=== PATIENT | male | born 1960 | race Caucasian/White ===

== ENCOUNTER 2021-07-05 06:53 | Outpatient (CLI) | payer OTHER, SELFPAY ==
[2021-07-05 07:31] LABS: Hemoglobin 9.2 g/dL (14.0-18.0); Mean Corpuscular HGB Conc 31.7 g/dl (32-36); Mean Corpuscular Hemoglobin 30.3 pg (26-34); Mean Corpuscular Volume 95.4 fl (80-100); Mean Platelet Volume 8.2 fl (7.4-10.4); Platelet Count Result 540 k/mm3 (150-375); Red Blood Count 3.04 M/mm3 (4.6-6.20); Red Cell Distribution Width 13.8 % (11.5-14.5); White Blood Count 12.1 K/mm3 (4.5-10.0)
[2021-07-05 07:38] LABS: Anion Gap 8 mmol/L (8-16); Blood Urea Nitrogen 15 mg/dL (9-20); Calcium 8.7 mg/dL (8.4-10.2); Carbon Dioxide 30 mmol/L (22-30); Chloride 100 mmol/L (98-107); Estimated Glomerular Filt Rate > 60; Glucose 117 mg/dL (65-110); Potassium 4.3 mmol/L (3.4-5.0); Sodium 138 mmol/L (137-145)
== END 2021-07-05 06:54 | disposition home or self-care (01) ==
PROVIDERS: PCP Physician Assistant
DX: D64.9 Anemia, unspecified (principal); E87.6 Hypokalemia
CPT/HCPCS: 36415; 80048; 85027

== ENCOUNTER 2021-10-07 07:15 | Outpatient (RCR) | payer OTHER, SELFPAY ==
[2021-07-23 08:23] VITALS: PULSE 89
== END 2021-10-07 08:30 | disposition home or self-care (01) ==
LOC: ANHCPREHAB 07:15
PROVIDERS: PCP Physician Assistant
DX: Z95.2 Presence of prosthetic heart valve (principal); Z95.5 Presence of coronary angioplasty implant and graft
CPT/HCPCS: 93798

== ENCOUNTER 2021-10-11 00:41 | Day surgery (SDC) | payer OTHER, SELFPAY ==
[2021-09-27 14:09] VITALS: BMI 25.0
--- NOTE | 2021-10-08 13:53 | PM.HPGS ---
History of Present Illness History of Present Illness Consent: Risks, benefits, and alternatives have been discussed and questions answered. Patient agrees to proceed with procedure. Chief complaint: hx of colon polyps Narrative: Brian Suarez is a 61 year old male referred for colon cncer screening. He has a history of colon polyps. His last colonoscopy was 5 years ago Review of Systems Review of Systems: All systems reviewed & are unremarkable except as noted in HPI and below PMFSH Family History Family History Father Diabetes mellitus Hypercholesteremia Heart disease Grandparent Carcinoma of colon Social History Social History Smoking status: Never smoker Substance use type: does not use Living arrangements: alone Spiritual care concerns: No Meds Home Medications and Allergies Home Medications Medication Instructions Recorded Confirmed Type aspirin 325 mg PO DAILY 07/23/21 09/27/21 History atorvastatin 40 mg PO DAILY 07/23/21 09/27/21 History Allergies Allergy/AdvReac Type Severity Reaction Status Date / Time No Known Allergies Allergy Verified 10/11/21 08:48 Exam Resp: Auscultation: clear to auscultation bilaterally Cardio: Rate: regular rate Rhythm: regular rhythm GI: GI Palp: Yes Soft to palpation and No Tenderness to palpation present (GI) Assessment and Plan Assessment and plan (1) Colon cancer screening: Code(s): Z12.11 - Encounter for screening for malignant neoplasm of colon Status: Acute Assessment and Plan: Colonoscopy with possible biopsy or polypectomy or cautery or injection of substances.
[2021-10-11 08:50] VITALS: BP 132/96; PULSE 88; RESP 18; TEMP 36.4; O2SAT 99
[2021-10-11] MEDS: LACTATED RINGERS 1,000 ML 150 ML IV CONT (09:06)
[2021-10-11] MEDS: GENTAMICIN 80MG/SOD CHL 50 ML 80 MG/50 ML BAG 100 MG IVPB (09:07)
--- NOTE | 2021-10-11 09:13 | WPDANESEPPF ---
Anes - Initial Pre Proc Eval Procedure: Operation Date: 10/11/21 10:00 Proposed Procedures p Screening Colonoscopy - Aj Chris MD Date/Time: 10/11/21 09:13 Surgeon: Aj Chris MD Pre Op Diagnosis: hx of colon polyps Patient Data Age: 61 Gender: M Height: 1.75 m Weight: 77 kg Last Vital Signs Temp 97.6 F 10/11/21 08:50 Pulse 88 10/11/21 08:50 Resp 18 10/11/21 08:50 BP 132/96 H 10/11/21 08:50 Pulse Ox 99 10/11/21 08:50 Allergies Allergy/AdvReac Type Severity Reaction Status Date / Time No Known Allergies Allergy Verified 10/11/21 08:48 Home Medications Medication Instructions Recorded Confirmed Type aspirin 325 mg PO DAILY 07/23/21 09/27/21 History atorvastatin 40 mg PO DAILY 07/23/21 09/27/21 History Patient hx anesthesia problems: none Family hx anesthesia problems: none Results Review: All pre-operative results and documents have been reviewed as part of the pre-operative evaluation. [facility] Family History Family History (Updated 07/23/21 @ 08:45 by America Hernandez RN) Father Diabetes mellitus Hypercholesteremia Heart disease Grandparent Carcinoma of colon Social History Social History Smoking status: Never smoker Substance use type: does not use Living arrangements: alone Spiritual care concerns: No Anes - Eval Final PreProcedure Day of Procedure 10/11/21 09:13 Patient weight: normal Heart: regular rate and rhythm Lungs: clear to auscultation Airway: Mallampati scale class II Neurological: alert and oriented Last oral intake: >/= 8 hours ASA classification: III Emergent: no Anesthetic plan: proceed Anesthesia type and monitoring: general GIVS and standard monitoring Results Review: All pre-operative results and documents have been reviewed as part of the pre-operative evaluation. Informed Consent: The patient's anesthetic plan and its attendant risks and benefits were discussed with the patient/family/POA. Questions were solicited and answers provided to the satisfaction of the patient/family/POA.
[2021-10-11] MEDS: AMPICILLIN 2 GM/NS 100 ML 2 GM/100 ML BAG IVPB (09:33)
[2021-10-11 10:10] VITALS: BP 95/64; PULSE 92; RESP 20; O2SAT 100
[2021-10-11 10:20] VITALS: BP 121/89; PULSE 91; RESP 20; O2SAT 100
[2021-10-11 10:30] VITALS: BP 106/80; PULSE 87; RESP 20; O2SAT 100
== END 2021-10-11 10:39 | disposition home or self-care (01) ==
PROVIDERS: PCP Physician Assistant; Visit Provider Internal Medicine Gastroenterology
PROC: 0DJD8ZZ Inspection of Lower Intestinal Tract, Via Natural or Artificial Opening Endoscopic (ICD-10-PCS; CPT 45378; principal; 2021-10-11 10:00)
DX: Z12.11 Encounter for screening for malignant neoplasm of colon (principal); Z86.010 Personal history of colon polyps; K64.8 Other hemorrhoids; Z79.82 Long term (current) use of aspirin
CPT/HCPCS: 45378; J0290; J1580; J2704; J7120

== ENCOUNTER → 2022-09-30 14:20 | Outpatient (CLI) | payer OTHER, SELFPAY ==
--- NOTE | ~2022-09-30 | MR_ITS ---
EXAMINATION: MR brain/brain stem wo/w con DATE: 09/30/2022 15:06 INDICATION: Headache. TECHNIQUE: Magnetic resonance imaging (MRI) of the brain and brainstem was performed without and with 15 mL MultiHance intravenous contrast. COMPARISON: None. FINDINGS: There are a few foci of nonspecific increased T2-weighted signal intensity in the cerebral white matter, which is within normal limits for the patient's age. There is no intracranial hemorrhag e, acute infarction, or abnormal intracranial mass lesion. The ventricles are normal in size. The par anasal sinuses are clear. The orbits are normal. The mastoid air cells are normal. IMPRESSION: 1. Normal brain. Reviewed, dictated and finalized at location A. Y EDUCATION TEACHER IMPRESSION: 1. Normal brain.
== END ==
PROVIDERS: PCP Physician Assistant; Visit Provider Physician Assistant
DX: R51.9 Headache, unspecified (principal)
CPT/HCPCS: 70553; A9577

== ENCOUNTER → 2023-01-20 09:22 | Outpatient (CLI) | payer OTHER, SELFPAY ==
--- NOTE | ~2023-01-20 | CT_ITS ---
CT of the Abdomen: Indication: Distended abdominal wall veins Technique: 2.5 mm axial scans were obtained through the abdomen following intravenous administration of 100 cc of Omnipaque 350. Dose reduction technique was used on this scan by utilizing automated ex posure control and iterative reconstruction technique. The dose-length product (DLP) was 309.86 mGy-c m. Findings: Scans through the lung bases are unremarkable. There is eventration/elevation of the left hemidiaphragm. The liver, spleen, pancreas, gallbladder, and adrenal glands are within normal limits. There is sever e right hydronephrosis and dilatation renal pelvis with abrupt tapering at the UPJ region. Small simp le left renal cyst present. No evidence of aortic aneurysm. No lymphadenopathy. Visualized bowel loops are unremarkable. Probable trace free fluid in the visualized upper pelvis. Sc attered left-sided abdominal surgical clips are noted. Mildly prominent vessels are noted in the ante rior subcutaneous soft tissues, nonspecific. Impression: Mildly prominent vessels in the anterior subcutaneous soft tissues, nonspecific. Severe right hydronephrosis with abrupt tapering at the UPJ region, suggestive of UPJ obstruction. Th is appears to be new as compared to prior chest CT dated 04/13/2018 however. Consider additional imagi ng workup as indicated. Probable trace free fluid in the upper pelvis. Reviewed, dictated and finalized at location M. Impression: Mildly prominent vessels in the anterior subcutaneous soft tissues, nonspecific . Severe right hydronephrosis with abrupt tapering at the UPJ region, suggestive of UPJ obstruction. This appears to be new as compared to prior chest CT dated 04/13/2018 however. Consider additional imaging workup as indicated. Probable trace free fluid in the upper pelvis.
[2023-01-20 09:41] LABS: Estimated Glomerular Filt Rate 56
== END ==
PROVIDERS: PCP Physician Assistant; Visit Provider Physician Assistant
DX: I86.8 Varicose veins of other specified sites (principal); N13.30 Unspecified hydronephrosis
CPT/HCPCS: 74160; Q9967

== ENCOUNTER 2024-09-24 15:34 | Outpatient (CLI) | payer MEDICARE, OTHER, SELFPAY ==
--- NOTE | ~2024-09-24 | XR_ITS ---
Exam: Abdomen 1V HISTORY: R10.9 - Unspecified abdominal pain COMPARISON: Reference is made to a CT examination of the abdomen dated 01/20/2023. TECHNIQUE: Supine images of the abdomen FINDINGS: Significant fecal stasis within the colon. Multiple surgical clips, to the left of midline consistent with prior surgical intervention. No air is identified within the rectum. IMPRESSION: Significant fecal stasis without air in the rectum, as detailed above. Cross-sectional imaging (contrast-enhanced CT examination of the abdomen and pelvis) is recommended f or further evaluation. Reviewed, dictated and finalized at location A. GHT AND PASSENGER AGENT IMPRESSION: Significant fecal stasis without air in the rectum, as detailed above. Cross-sectional imaging (contrast-enhanced CT examination of the abdomen and pe lvis) is recommended for further evaluation.
== END 2024-09-24 15:35 | disposition home or self-care (01) ==
LOC: MICIMG 15:35
PROVIDERS: PCP Family Medicine; Visit Provider Family Medicine
DX: K56.41 Fecal impaction (principal); Z87.19 Personal history of other diseases of the digestive system
CPT/HCPCS: 74019

== ENCOUNTER 2024-11-26 16:13 | Outpatient (CLI) | payer MEDICARE, OTHER, SELFPAY ==
--- NOTE | ~2024-11-26 | CT_ITS ---
CT of the Abdomen and Pelvis: Indication: Fecal impaction Technique: 2.5 mm axial scans were obtained through the abdomen and pelvis following intravenous adm inistration of 100 cc of Omnipaque 350. Dose reduction technique was used on this scan by utilizing a utomated exposure control and iterative reconstruction technique. The dose-length product (DLP) was 3 34.01 mGy-cm. COMPARISON: 01/20/2023 Findings: Scans through the lung bases demonstrate minimal left basilar atelectatic change. Extensiv e collateral vessels are noted in the subcutaneous soft tissues predominantly the left anterior abdom inal and chest wall region. There is elevation of the left hemidiaphragm. The liver, spleen, pancreas, gallbladder, and adrenal g lands are within normal limits. Status post right nephrectomy. Left renal cyst present. No evidence o f aortic aneurysm. No lymphadenopathy. No bowel obstruction or bowel wall thickening. Prominent stool suggests constipation. Images through the pelvis were performed. Urinary bladder unremarkable. Prostate gland mildly enlarge d. No ascites. Impression: No definite acute abnormality. Status post right nephrectomy. Stable elevation left hemidiaphragm. Enlarged prostate gland. Constipation. Reviewed, dictated and finalized at location M. Impression: No definite acute abnormality. Status post right nephrectomy. Stable elevation left hemidiaphragm. Enlarged prostate gland. Constipation.
--- OUTSIDE RECORDS SUMMARY | 2024-11-26 17:02 | XMS_ITS | Encounter Summary ---
Author Organization [facility] Address [facility] [place] [address] Care Team Providers Care Basketball Commentator Name Role Phone Sania Sullivan Primary Care Provider [phone] Encounter Details Date Type Department Care Team (Late st Contact Info) Description 05/07/[address] [facility] Conversion [address], [place] [address] , Generic Conversion, Social History Tobacco Use Types Packs/Day Years Used Date Smoking Tobacco: Never Sex and Gender Information Value Date Recorded Sex Assigned at Male 02/13/2023 9:49 AM CDT Legal Sex Male 9:51 PM CDT Gender Identity Male 02/13/2023 9:49 AM CDT Sexual Orientation Straight 02/13/2023 9: 49 AM CDT documented as of this encounter Plan of Treatment Not on file documented as of this encounter Visit Diagnoses Not on filedocumented in this encounter Additional Health Concerns Infection Onset Date Last Indicated Resolved Time COVID-19 Rule Out 06/20/2021 06/20/2021 09/09/2021 11:08 AM IT ANALYST COVID-19 Rule Out 06/21/2021 06/20/2021 06/21/2021 11:58 AM CDT documented as of this encounter Care Teams Basketball Commentator Relationship Specialty Start Date End Date Sania Sullivan PA [address] [place] [address] PCP - General PHYSICIAN LEARNING SUPPORT SPECIALIST 01/27/23 documented as of this encounter
--- OUTSIDE RECORDS SUMMARY | 2024-11-26 17:02 | XMS_ITS | Clinical Summary ---
Author Organization [facility] Address [facility] [place] [address] Care Team Providers Care Automotive Service Management Teacher Name Role Phone Sania Sullivan Primary Care Provider [phone] Allergies No known active allergies Medications atorvastatin (LIPITOR) 40 MG tablet Take 1 tablet (40 mg total) by mouth nightly at bedtime. Active levothyroxine (SYNTHROID) 75 MCG tablet Take 1 tablet (75 mcg total) by mouth every morning. Active aspirin EC (ECOTRIN) 81 MG tablet Take 1 tablet (81 mg total) by mouth daily. Active Vitamin D3 125 mcg Tab Take 1 tablet (125 mcg total) by mouth every other day. Active vitamin B-12 (CYANOCOBALAMIN ) (CYANOCOBALAMIN ) 1000 mcg tablet Take 1 tablet (1,000 mcg total) by mouth every other day. 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 Family History Medical History Relation Comments Diabetes Father Kidney Disease Father None Maternal Grandmother kidney sujey bean Cancer Paternal Grandfather colon None Paternal Grandfather kidney sujey bean Relation Status Comments Father Maternal Grandmother Mother Alive Paternal Grandfather Social History Tobacco Use Types Packs/Day Years Used Date Smoking Tobacco: Never Smokeless Tobacco: Never Tobacco Cessation:Counseling Given: Not Answered Alcohol Use Standard Drinks/Week Comments Not Currently 0 (1 standard drink = 0.6 oz pur e alcohol) Sex and Gender Information Value Date Recorded Sex Assigned at Male 02/13/2023 9:49 AM CDT Legal Sex Male 9:51 PM CDT Gender Identity Male 02/13/2023 9:49 AM CDT Sexual Orientation Straight 02/13/2023 9: 49 AM CDT Last Filed Vital Signs Vital Sign Reading Time Taken Comments Blood Pressure 138/73 02/14/2023 12:30 PM CDT Pulse 61 02/14/2023 12:30 PM CDT Temperature 36.3 C (97.4 F) 02/14/2023 7:00 AM CDT Respiratory Rate 16 02/14/2023 12:3 0 PM CDT Oxygen Saturation 99% 02/14/2023 12: 30 PM CDT Inhaled Oxygen Concentration - - Weight 75.2 kg (165 lb 12.6 oz) 02/14/2023 7:00 AM CDT Height 175.3 cm (5' 9 ) 02/14/2023 7:00 AM CDT Body Mass Index 24.48 02/14/2023 7:00 AM CDT Plan of Treatment Health Maintenance Due Date Last Done Comments Colorectal Cancer Screening Colonoscopy (10 Years) 1959 Hepatitis C 1977 Zoster Vaccines (1 of 2) 2009 COVID-19 Vaccine (3 - 2023-2 5 season) 2024 01/23/2021, 01/02/2021 Pneumococcal Vaccine: 65+ Years (1 of 1 - PCV) 2024 DTaP, Tdap and Td Vaccines ( 2 - Td or Tdap) 10/17/2032 10/17/2022 RSV Immunization or 60+ Years (1 - 1-dose 75+ series) 2034 Meningococcal B Vaccine Aged Out No l onger eligible based on patient's age to complete this topic Meningococcal Vaccine Aged Out No rita angelito eligible based on patient's age to complete this topic Pneumococcal Vaccine: Pediatrics (0 to 5 Years) and At-Risk Patients (6 to 64 Years) Aged Out No longer eligible b ased on patient's age to complete this topic RSV Immunizations Under 20 Months Aged Out No longer eligible b ased on patient's age to complete this topic Medical Devices Implanted Type Area Transportation Assistant Device Identifier Shelf Expiration Date Model / Serial / Lot Valve Implant Valve Implant Aorta Insurance [employer] OPEN ACCESS [facility] Care Teams Automotive Service Management Teacher Relationship Specialty Start Date End Date Sania Sullivan PA [address] [place] [address] PCP - General PHYSICIAN COUNTER CONTROL OPERATOR 01/27/23
--- OUTSIDE RECORDS SUMMARY | 2024-11-26 17:02 | XMS_ITS | Encounter Summary ---
Author Organization [facility] Address [facility] [place] [address] Care Team Providers Care Green Chain Offbearer Name Role Phone Sania Sullivan Primary Care Provider [phone] Encounter Details Date Type Department Care Team (Late st Contact Info) Description 10/24/[address] [facility] Conversion [address] [place], [place] [id number] , Generic Conversion, Social History Tobacco Use [...] Rule Out 06/20/2021 06/20/2021 09/09/2021 11:08 AM LARD MAKER COVID-19 Rule Out 06/21/2021 06/20/2021 06/21/2021 11:58 AM CDT documented as of this encounter Care Teams Green Chain Offbearer Relationship Specialty Start Date End Date Sania Sullivan PA [address] [place] [address] PCP - General PHYSICIAN RECEIVING DOCK CHECKER 01/27/23 documented as of this encounter
--- OUTSIDE RECORDS SUMMARY | 2024-11-26 17:02 | XMS_ITS | Clinical Summary ---
Author Organization [facility] Address [address] [place] [address] Care Team Providers Care Records Management Coordinator Name Role Phone Sania Sullivan Primary Care Pr ovider Enid Barnes DO Unavailable [phone] Bib Hanna MD Unavailable [phone] Allergies No known active allergies Medications atorvastatin (LIPITOR) 40 mg tabletIndicatio ns:hyperlipidem ia Take 1 tablet (40 mg total) by mouth daily with dinner Active levothyroxine (SYNTHROID) 75 mcg tabletIndicatio ns:hypothyroidi sm Take 1 tablet (75 mcg total) by mouth cork tile floor layer before breakfast Active cyanocobalamin (Vitamin B-12) 1,000 mcg tabletIndicatio ns:Prevention of Vitamin B12 Deficiency Take 1 tablet (1,000 mcg total) by mouth daily Active cholecalciferol (Vitamin D3) 5,000 unit tabletIndicatio ns:Prevention of Vitamin D Deficiency Take 1 tablet (5,000 Units total) by mouth every other day Active aspirin 81 mg enteric coated tabletIndicatio ns:prevention of thrombosis Take 1 tablet (81 mg total) by mouth daily Resume in 3 days 3 Active Active Problems Problem Noted Date Diagnosed Date Atrophic kidney 05/17/2023 Atrophic kidney, acquired 04/14/2023 Surgical History Surgery Date Site/Laterality Comments CATH SVC IVC BILATERAL 04/02/2015 Bilateral CATH SVC IVC BILATERAL 07/21/2015 Bilateral CATH SVC IVC BILATERAL 04/08/2015 Bilateral Medical History Medical History Date Comments Hyperlipidemia Hodgkin lymphoma (HCC) 1974 Social History Tobacco Use Types Packs/Day Years Used Date Smoking Tobacco: Never Passive Smoke Exposure: Never Smokeless Tobacco: Never Tobacco Cessation:Counseling Given: Not Answered AUDIT-C Answer Date Recorded Q1: How often do you have a drink containing alcohol? Never 05/05/2023 Q2: How many drinks containi ng alcohol do you have on a typical day when you are drinking? Patient does not drink Q3: How often do you have si x or more drinks on one occasion? Never 05/05/2023 Personal Safety Answer Date Recorded Have you ever been in or are you currently in a harmful physical or emotional relationship or is someone making you feel afraid or unsafe? Denies 05/04/2024 Sex and Gender Information Value Date Recorded Sex Assigned at Not on file Legal Sex Male 5:57 AM CIGAR BINDER Gender Identity Not on file Sexual Orientation Not on file Obstetrics History Last Filed Vital Signs Vital Sign Reading Time Taken Comments Blood Pressure 144/94 05/04/2024 6:00 PM CDT Pulse 83 05/04/2024 6:00 PM CDT Temperature 36.7 C (98 F) 05/04/2024 11:28 AM CDT Respiratory Rate 16 05/04/2024 11:28 AM CDT Oxygen Saturation 98% 05/04/2024 6:00 PM CDT Inhaled Oxygen Concentration - - Weight 78 kg (172 lb) 05/04/2024 11:28 AM CDT Height 175.3 cm (5' 9 ) 05/04/2024 11:28 AM CDT Body Mass Index 25.4 05/04/2024 11:28 AM CDT Plan of Treatment Health Maintenance Due Date Last Done Comments Colon Cancer Screening-Colonoscopy 1959 Depression Screening 1959 Hepatitis C Screening 1959 Prostate Cancer Screening-PSA 1959 Pneumococcal vaccine 65+ (1 of 2 - PCV) 1978 Zoster Vaccine (1 of 2) 1978 Covid-19 Vaccine (3 - Pfizer risk series) 02/20/2021 01/23/2021, 01/02/2021 Fall Risk Assessment 05/17/2024 05/17/2023 Abdominal Aortic Aneurysm (A AA) Screen 2024 05/04/2024 Well Visit 65+ 2024 Influenza Vaccine (Season Ended) 2025 06/16/20 14, 05/21/2013 DTaP/Tdap/Td Vaccine (2 - Td or Tdap) 10/17/2032 Hepatitis B Screening Completed 02/28/2011 , 08/16/2010, 07/12/2010 Procedures Procedure Name Priority Date/Time Associated Diagnosis Comments CT ABDOMEN PELVIS WO CONTRAST ED 05/04/2024 4:48 PM CDT from Last 3 Months or Most Recently Relevant to Health Maintenance Results * CT Abdomen Pelvis WO Contrast (05/04/2024 4:48 PM CDT) Anatomical Region Laterality Modality Body N/A Computed Tomogra phy 05/04/2024 5:52 PM CDT Impressions 05/04/2024 5:[address] evidence of acute intra-abdominal or intra-pelvic disease. 2. Marked elevation of the left hemidiaphragm which results in incomplete imaging of the abdominal organs. 3. 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 4. Right nephrectomy. 5. Moderate chronic stool burden. Electronically signed by: Zi Chavez 05/04/2024 5:52 PM CDT EXAMINATION: CT ABDOMEN PELVIS WO CONTRAST INDICATION: Flank pain, kidney stone suspected COMPARISON: None TECHNIQUE: Volumetric multidetector CT images of the abdomen and pelvis were obtained without the administration of IV contrast. Multiple planes were reconstructed for examination. FINDINGS: Exam is limited by lack of IV contrast. Elevation of the left hemidiaphragm which is incompletely imaged with incomplete imaging of the stomach, pancreatic tail, and colonic splenic flexure. Round uniform attenuation tissue in the left upper quadrant measuring 4.3 cm likely represents splenule. There is no parent spleen within the image field of view. There are surgical clips in the left or quadrant likely related to prior splenectomy. Multiple additional surgical clips in the left mid and inferior abdomen and in the left pelvis. The liver is normal in size. No intrahepatic biliary ductal dilatation. Gallbladder and common bile duct are unremarkable. Right nephrectomy. Small right Bochdalek hernia. The pancreas and adrenal glands are unremarkable. No evidence of urolithiasis. No evidence of hydronephrosis, hydroureter or perinephric fat stranding. Simple interpolar left renal cyst. Urinary bladder is decompressed, limiting evaluation. Prostatomegaly. Seminal vesicles are unremarkable. Moderate colonic stool burden. Otherwise, stomach, large, and small bowel are unremarkable. The appendix is noninflamed. No abdominal or pelvic lymphadenopathy. No free air or free fluid is seen within the peritoneal cavity. The nonaneurysmal aorta and its branches are without significant abnormality. No acute osseous abnormalities or destructive osseous lesion. Moderate L5-S1 degenerative disc disease. Mild L1 to facet arthropathy on the left. Mild T10-T11 degenerative disc disease. Procedure Note Emre Garett Vee, DO - 05/04/2024 EXAMINATION: CT ABDOMEN PELVIS WO CONTRAST INDICATION: Flank pain, kidney stone suspected COMPARISON: None TECHNIQUE: Volumetric multidetector CT images of the abdomen and pelvis were obtained without the administration of IV contrast. Multiple planes were reconstructed for examination. FINDINGS: Exam is limited by lack of IV contrast. Elevation of the left hemidiaphragm which is incompletely imaged with incomplete imaging of the stomach, pancreatic tail, and colonic splenic flexure. Round uniform attenuation tissue in the left upper quadrant measuring 4.3 cm likely represents splenule. There is no parent spleen within the image field of view. There are surgical clips in the left or quadrant likely related to prior splenectomy. Multiple additional surgical clips in the left mid and inferior abdomen and in the left pelvis. The liver is normal in size. No intrahepatic biliary ductal dilatation. Gallbladder and common bile duct are unremarkable. Right nephrectomy. Small right Bochdalek hernia. The pancreas and adrenal glands are unremarkable. No evidence of urolithiasis. No evidence of hydronephrosis, hydroureter or perinephric fat stranding. Simple interpolar left renal cyst. Urinary bladder is decompressed, limiting evaluation. Prostatomegaly. Seminal vesicles are unremarkable. Moderate colonic stool burden. Otherwise, stomach, large, and small bowel are unremarkable. The appendix is noninflamed. No abdominal or pelvic lymphadenopathy. No free air or free fluid is seen within the peritoneal cavity. The nonaneurysmal aorta and its branches are without significant abnormality. No acute osseous abnormalities or destructive osseous lesion. Moderate L5-S1 degenerative disc disease. Mild L1 to facet arthropathy on the left. Mild T10-T11 degenerative disc disease. IMPRESSION: 1. No CT evidence of acute intra-abdominal or intra-pelvic disease. 2. Marked elevation of the left hemidiaphragm which results in incomplete imaging of the abdominal organs. 3. 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 4. Right nephrectomy. 5. Moderate chronic stool burden. Electronically signed by: Garett Andrea D.O. Nancy Verduzco MD IMG CT PROCEDURES Final Result from Last 3 Months or Most Recently Relevant to Health Maintenance Insurance [place] [id number] MEDICARE [place] [id number] Advance Directives For more information, please contact: [phone] Documents on File Type Date Recorded Patient Lock Maintenance Supervisor Expl anation Power of Sandblast Operator 05/17/2023 11:19 AM * Full Code (Latest Code Status on File) Date Activated Date Inactivated Comments 05/17/2023 6:46 PM 05/18/2023 10:05 PM Care Teams Records Management Coordinator Relationship Specialty Start Date End Date Sania Sullivan PA PCP - General 04/13/17 Enid Barnes DO [address] [place] [id number] Referring Physician Internal Medicine 05/12/23 [place] [address] [place] [address] Consulting Physician Urology 05/18/23
--- OUTSIDE RECORDS SUMMARY | 2024-11-26 17:02 | XMS_ITS | Continuity of Care Document ---
Author Organization [facility] Address [address] [place] [address] Phone Care Team Providers Care Charge Accounts Audit Clerk Name Role Phone Melchor Ewing MD Unavailable Unavailable Allergies, Adverse Reactions, Alerts Substance Reaction Status Criticality No Known Allergies Active No Inform ation Medications Medication Instructions Dosage Effective Dates (start - stop) Status Comments ATORVASTATIN 40MG TABLETS TAKE 1 TABLET BY MOUTH EVERY DAY AT BEDTIME - Active LEVOTHYROXINE 0.075MG (75MCG) TABS TAKE 1 TABLET BY MOUTH EVERY DAY - Active aspirin 81 mg chewable tablet chew 1 tablet by oral route every day 81 MG - Active Vitamin B-12 ER 1,000 mcg tablet,extended release - Active Vitamin D3 125 mcg (5,000 unit) tablet take 1 tablet by oral route every other day - Active levothyroxine 75 mcg tablet take 1 tablet by oral route every day 75 MCG - No Longer Active atorvastatin 40 mg tablet take 1 tablet by oral route every day at bedtime 40 MG - No Longer Active Procedures Procedure Date GENERAL HEALTH PANEL HEMOGLOBIN A1C HGA1C, GLYCO LIPID PANEL PSA, TOTAL ROUTINE VENIPUNCTURE PREVENTATIVE-EST: 40-64 OFFICE [id number] OFFICE [id number] OFFICE [id number] Advance Directives Directive Yes / No Effective Date File Name No Information Encounters Encounter Description Practice Location Reason(s) For Visit Diagnoses Date Provider Providers Copied on Encounter [facility], [address], [place], [place], [id number] , [place] tel: [phone] [facility] No Information 5 Kaylin Roche. [address], [address], [place], [id number], [place]. tel:[phone] [facility], [address], [place], [place], [id number] , [place] tel: [phone] [facility] Chronic neck painOther chronic pain [address], [address], [place], [id number], [place]. tel:[phone] PREVENTATIVE -EST: 40-64 [facility], [address], [place], [place], [id number] , [place] tel: [phone] [facility] preventive exam (chief complaint)Ch ronic Conditions (chief complaint) Mixed hyperlipidemiaAcqu ired hypothyroidismCAD, multiple vesselPreventative health careChronic neck pain [address], [address], [place], [id number], [place]. tel:[phone] Referring Provider: Melchor Marquez, [address], [place], [address] . tel:[phone] OFFICE [id number] PANDED [facility], [address], [place], [place], [id number] , [place] tel: [phone] [facility] acute problem (chief complaint)ac [place] problem (chief complaint) Viral URI with cough 4 Cynthia Grajeda. [address], [address], [place], [id number]. tel:[phone] Referring Provider: Melchor Marquez, [address], [place], [address] . tel:[phone] OFFICE [id number]-TBF-DA MP-MED [facility], [address], [place], [place], [id number] , [place] tel: [phone] Reinaldo Kidd getting established (chief complaint) Acquired hypothyroidismCAD, multiple vesselEssential tremorChronic coughPedal edemaMixed hyperlipidemia Kaylin Roche. [address], [address], [place], [id number], [place]. tel:[phone] Referring Provider: Celia [address], [place], [address] . tel:[phone] Family History Family Member Type Diagnosis Age At Onset No Information Payers Payer name Insurance type Covered green party ID Eros drake(s) [employer] [place] OPEN ACCESS I II III CI [id number] SOI Social History Type Description Quantity Date Captured Comments Sex Male Smoking Status No Information Sexual Orientation Straight or heterosexual Gender Identity Male Chief Complaint And Reason For Visit No Information Reason For Referral Reason For Referral No Information Plan Of Treatment Date Type Action Status Referral Referred To: Physical Therapy Ordered: Referrals: Physical Therapy. Evaluation/diagnostic/treatment - Level 3 ordered Referral Referred To: Physical Therapy [address] [place], [id number] Ordered: Referrals: Physical Therapy. Location: [facility]. Evaluation/diagnostic/treatment - Level 3 ordered Appointment Brian Suarez BOOKED History Of Present Illness Encounter Date Complaint History Of Prese nt Illness preventive exam Men's preventive visit. Patient is on a plant based diet diet. Marital status: . Relevant history is negative for tobacco use, alcohol use. Chronic Conditions *See Chronic Conditions HPI acute problem Chief complaint: Pt presents with URI. Pt reports 2 weeks ago developed nasal drainage, dry cough. The next day developed headache, body aches, productive cough. This lasted about 5 days, then symptoms improved. Six days ago he worked outside and symptoms recurred. Has recurrent productive cough of clear phlegm. Positive clear nasal drainage. Cough worse at night, wakes him up. Denies shortness of breath, wheezing, sore throat, ear pain, fevers, chills. Positive decreased energy. Not taking any OTC medications. Had negative COVID test today. acute problem getting established new patient comes in to get established. 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 No prior work up. Did not smoke. 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 He does not take an ZACKARY inhibitor. He does not have hypertension. Denies asthma though there is a family history. Cough gets worse at night. Denies acid reflux symptoms.Has a tremor in both hands worse on the left, blames it on his atorvastatin. Stopped it for five weeks on the recommendations of his schedule analyst basalt no real improvement. No family history of tremor.As coronary disease status post bypass an aortic valve replacement for which he sees Dr. Jeffrey. He brings in blood work from February we chose LDL to be around, he is resistant to taking 80 mg of atorvastatin is recommended 40 mg. He is very clean plant-based diet. He does not smoke as noted above. He does exercise. He does have a history of hypothyroidism and takes thyroid medicine with his most recent TSH in February being therapeutic. He does need refills of his medications.Just complain of lower extremity swelling that predates vein stripping for his bypass surgery. Proves with sleep and wears compression stockings. Won urinates frequently and does not want to have any diuretics added. He recently had a nephrectomy because of a malfunctioning kidney. 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 Referral for PT given to patient. If PT doesn't improve pain, let our office know and we will consider getting an xray of your neck. Related to Chronic neck pain Sees cardiology. jag chan aspirin and statin therapy Related to CAD, multiple vessel continue atorvastatin Related to Mixed hyperlipidemia Continue levothyroxi neLabs to check thyroid function today Related to Acquired hypothyroidism Start Medrol dosepak as described on the packageStart Mucinex DM over the counter as directed (6 or 12 hour packages)Humidifiers, steamy showersCall office or go to ED with worsening shortness of breath, cough, wheezing, or fever >101F Related to Viral URI with cough refilled atorvastati n, reviewed lipid panel March 12 LDL is 82 Related to Mixed hyperlipidemia we discussed the mul tiple causes of cough include postnasal drip acid reflux asthma or possibly radiation-induced damage. The various treatments would entail trying different medications. He's not interested for now. Related to Chronic cough continue support stockings Relat ed to Pedal edema review thyroid from February, repeat next February at physical. Refill thyroid dose Related to Acquired hypothyroidism continue aspirin and statin ther apy Related to CAD, multiple vessel discuss treatment op tions, observation for now. Reaffirmed happily the stent was causing this Related to Essential tremor Assessments Type Assessment Date No Information Patient Care Teams Name Effective Dates (start - stop) Status Members No Information
--- OUTSIDE RECORDS SUMMARY | 2024-11-26 17:02 | XMS_ITS | Encounter Summary ---
Author Organization [facility] Address [facility] [place] [address] Care Team Providers Care Concrete Stone Finisher Name Role Phone Sania Sullivan Primary Care Provider [phone] Encounter Details Date Type Department Care Team (Late st Contact Info) Description 01/30/2023 Prep for Procedure [facility] Pre-Admission Testing [place], [place] [address] Abelardo Rodriguez MD [address] [facility] [address] [place], [place] [address] Social History Tobacco Use Types Packs/Day Years Used Date Smoking Tobacco: Never Smokeless Tobacco: Never Alcohol Use Standard Drinks/Week Comments Not Currently 0 (1 standard drink = 0.6 oz pur e alcohol) Sex and Gender Information Value Date Recorded Sex Assigned at Male 02/13/2023 9:49 AM CDT Legal Sex Male 9:51 PM CDT Gender Identity Male 02/13/2023 9:49 AM CDT Sexual Orientation Straight 02/13/2023 9: 49 AM CDT COVID-19 Exposure Response Date Recorded In the last 10 days, have yo u been in contact with someone who was confirmed or suspected to have Coronavirus/COVID-19? No / Unsure 01/31/2023 9:31 AM CDT documented as of this encounter Plan of Treatment Not on file documented as of this encounter Results * PTT, PARTIAL THROMBOPLASTIN TIME (01/27/2023 1:55 PM CDT) PTT 35.3 25.1 - 36.5 SEC 01/27/2023 2:32 PM CDT [facility] 01/27/2023 1:55 PM CDT Abelardo Rodriguez MD LABORATORY Final Res ult Performing Organization Address [facility] Co de Phone Number [facility] [address] [place] [address], [place] [phone] * (ABNORMAL) PROTIME/INR, VENOUS (01/27/2023 1:55 PM CDT) PROTIME 13.4(H) 10.2 - 12.9 SEC 01/27/2023 2:32 PM CDT [facility] INR 1.1 01/27/2023 2:32 PM CDT [facility] Comment: Recommended INR Therapeutic Goals: 2.0-3.0 Routine Therapy 2.5-3.5 Mechanical Prosthetic Valves (High Risk) 01/27/2023 1:55 PM CDT Abelardo Rodriguez MD LABORATORY Final Res ult Performing Organization Address [facility] Co de Phone Number [facility] [address] [place] [address], * (ABNORMAL) BASIC METABOLIC PANEL (01/27/2023 1:55 PM CDT) GLUCOSE 103(H) 70 - 99 MG/DL 01/27/2023 2:28 PM CDT [facility] BUN 21(H) 7 - 18 MG/DL 01/27/2023 2:28 PM CDT [facility] CREATININE S/P/B 1.44(H) 0.7 - 1.3 MG/DL 01/27/2023 2:28 PM CDT [facility] SODIUM S/P/B 135(L) 136 - 145 MMOL/L 01/27/2023 2:28 PM CDT [facility] POTASSIUM S/P/B 3.9 3.5 - 5.1 MMOL/L 01/27/2023 2:28 PM CDT [facility] CHLORIDE S/P/B 106 100 - 108 MMOL/L 01/27/2023 2:28 PM CDT [facility] CO2 30.3 21 - 32 MMOL/L 01/27/2023 2:28 PM CDT [facility] CALCIUM S/P/B 8.6 8.5 - 10.1 MG/DL 01/27/2023 2:28 PM CDT [facility] ANION GAP NOT CALCULATED 5 - 15 MMOL/L 01/27/2023 2:28 PM CDT [facility] BUN CREATININE RATIO 14.6 6 - 26 01/27/2023 2:28 PM CDT [facility] GFR ESTIMATE 55(L) >90 ML/MIN/1. 73 M2 01/27/2023 2:28 PM CDT [facility] Comment: NOTE: eGFR is not calculated for patients <18 years of age. This is an estimated GFR calculation using the new CKD EPI creatinine equation without race and so does not require a correction factor for race. This estimated GFR should not be used for calculating drug doses. 01/27/2023 1:55 PM CDT us Abelardo Rodriguez MD LABORATORY Final Res ult [facility] [address] [place] [address], [place] [phone] * (ABNORMAL) CBC W/DIFF AUTOMATED (01/27/2023 1:55 PM CDT) [facility] WBC 6.5 4.5 - 11.0 x10'3/uL 01/27/2023 2:09 PM CDT [facility] RBC 4.06(L) 4.70 - 6.10 x10'6/uL 01/27/2023 2:09 PM CDT [facility] HGB 12.1(L) 14.0 - 18.0 G/DL 01/27/2023 2:09 PM CDT [facility] HCT 38.1(L) 43.0 - 54.0 % 01/27/2023 2:09 PM CDT [facility] MCV 93.8 80.0 - 94.0 FL 01/27/2023 2:09 PM CDT [facility] MCH 29.8 27.0 - 31.0 PG 01/27/2023 2:09 PM CDT [facility] MCHC 31.8(L) 32.0 - 36.0 G/DL 01/27/2023 2:09 PM CDT [facility] RDW 13.8 11.5 - 14.5 % 01/27/2023 2:09 PM CDT [facility] PLT 207 130 - 400 x10'3/uL 01/27/2023 2:09 PM CDT [facility] MPV 10.2 9.3 - 12.2 FL 01/27/2023 2:09 PM CDT [facility] DIFFERENTIAL TYPE AUTOMATED DIFFERENTIAL 01/27/2023 2:09 PM CDT [facility] NEUTROPHILS % 62.6 % 01/27/2023 2:09 PM CDT [facility] LYMPHOCYTES % 18.0 % 01/27/2023 2:09 PM CDT [facility] MONOCYTES % 14.9 % 01/27/2023 2:09 PM CDT [facility] EOSINOPHILS 3.4 % 01/27/2023 2:09 PM CDT [facility] BASOPHILS 0.9 % 01/27/2023 2:09 PM CDT [facility] IMMATURE GRANS % 0.2 % 01/28/20 2:09 PM CDT [facility] ABS. NEUTROPHILS TOTAL 4.04 1.80 - 7.70 x10'3/uL 01/27/2023 2:09 PM CDT [facility] ABS. LYMPHOCYTES 1.16 1.00 - 4.80 x10'3/uL 01/27/2023 2:09 PM CDT [facility] ABS. MONOCYTES 0.96(H) 0.30 - 0.82 x10'3/uL 01/27/2023 2:09 PM CDT [facility] ABS. EOSINOPHILS 0.22 0.04 - 0.54 x10'3/uL 01/27/2023 2:09 PM CDT [facility] ABS. BASOPHILS 0.06 0.01 - 0.08 x10'3/uL 01/27/2023 2:09 PM CDT [facility] ABS. IMMATURE GRANULOCYTES 0.01 0.00 - 0.49 x10'3/uL 01/27/2023 2:09 PM CDT [facility] 01/27/2023 1:55 PM CDT us Abelardo Rodriguez MD LABORATORY Final Res ult [facility] [address] [place] [address], * CULTURE URINE (01/27/2023 1:47 PM CDT) SPEC DESCRIPTION URINE CLEAN CATCH 01/27/2023 1:47 PM CDT [facility] SPECIAL REQUESTS NO SPECIAL REQUEST 01/27/2023 1:47 PM CDT [facility] CULTURE RESULT NO GROWTH 2 DAYS 01/29/2023 10:23 AM CDT [facility] URINE SPECIMEN OBTAINED BY CLEAN CATCH PROCEDURE / Unknown 01/27/2023 1:47 PM CDT 01/27/2023 1:59 PM CDT Abelardo Rodriguez MD MICROBIOLOGY - GENERAL OR DERABLES Final Result [facility] [address] [place] [address], [place] [phone] * URINALYSIS WI REFLEX TO CULTURE (01/27/2023 1:47 PM CDT) SPECIMEN TYPE URINE CLEAN CATCH 01/27/2023 1:47 PM CDT [facility] COLOR (U) COLORLESS 01/27/2023 2:10 PM CDT [facility] TRANSPARENCY CLEAR 01/27/2023 2:10 PM CDT [facility] SPECIFIC GRAVITY (U) 1.030 1.001 - 1.030 01/27/2023 2:10 PM CDT [facility] U PH 6.5 5.0 - 9.0 01/27/2023 2:10 PM CDT [facility] LEUKOCYTES (U) NEGATIVE NEGATIVE 01/27/2023 2:10 PM CDT [facility] NITRITES NEGATIVE NEGATIVE 01/27/2023 2:10 PM CDT [facility] PROTEIN (U) NEGATIVE <30 MG/DL 01/27/2023 2:10 PM CDT [facility] URINE GLUCOSE NORMAL NORMAL MG/DL 01/27/2023 2:10 PM CDT [facility] KETONES MG/DL (U) NEGATIVE NEGATIVE MG/DL 01/27/2023 2:10 PM CDT [facility] UROBILINOGEN NORMAL NORMAL MG/DL 01/27/2023 2:10 PM CDT [facility] BILIRUBIN (U) NEGATIVE NEGATIVE MG/DL 01/27/2023 2:10 PM CDT [facility] BLOOD (U) NEGATIVE NEGATIVE 01/27/2023 2:10 PM CDT [facility] CULTURE & SENSITIVITY INDICATED? CULTURE IS NOT INDICATED 01/27/2023 2:10 PM CDT [facility] WBC/HPF <1 <6 /HPF 01/27/2023 2:10 PM CDT [facility] URINE SPECIMEN OBTAINED BY CLEAN CATCH PROCEDURE / Unknown 01/27/2023 1:47 PM CDT Abelardo Rodriguez MD URINE ORDERABLES Final Re sult [facility] [address] [place] [address], documented in this encounter Visit Diagnoses Diagnosis Hypertrophy of prostate with urinary obstruction- Primary Hypertrophy of prostate with urinary obstruction and other lower urinary tract symptoms (LUTS) documented in this encounter Care Teams Concrete Stone Finisher Relationship Specialty Start Date End Date Sania Sullivan PA [address] [place] [address] PCP - General PHYSICIAN NETWORK OPERATIONS TECHNICIAN 01/27/23 documented as of this encounter
--- OUTSIDE RECORDS SUMMARY | 2024-11-26 17:03 | XMS_ITS | Referral Summary ---
Author Organization [facility] Address [address] [place] [address] Care Team Providers Care Liner Machine Operator Helper Name Role Phone Sania Sullivan Primary Care Pr ovider Enid Barnes DO Unavailable [phone] Bib Hanna MD Unavailable [phone] Allergies No known active allergies Medications atorvastatin (LIPITOR) 40 mg tabletIndicatio ns:hyperlipidem ia Take 1 tablet (40 mg total) by mouth daily with dinner Active levothyroxine (SYNTHROID) 75 mcg tabletIndicatio ns:hypothyroidi sm Take 1 tablet (75 mcg total) by mouth assistant drafter before breakfast Active cyanocobalamin (Vitamin B-12) 1,000 [...] Atrophic kidney 05/17/2023 Atrophic kidney, acquired 04/14/2023 Social History Tobacco Use Types Packs/Day Years [...] on file 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 Electronically signed by: Garett Andrea D.O. Narrative 05/04/2024 5:52 PM CDT EXAMINATION: CT ABDOMEN [...] Mild T10-T11 degenerative disc disease. Procedure Note Garett Andrea, DO - 05/04/2024 EXAMINATION: CT ABDOMEN PELVIS [...] by: Garett Andrea D.O. Nancy Verduzco MD 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
== END 2024-11-26 16:14 | disposition home or self-care (01) ==
PROVIDERS: PCP Family Medicine; Visit Provider Nurse Practitioner Family
DX: K56.41 Fecal impaction (principal); N40.0 Benign prostatic hyperplasia without lower urinary tract symptoms; J98.6 Disorders of diaphragm; Z90.5 Acquired absence of kidney
CPT/HCPCS: 74177; Q9967

== ENCOUNTER 2025-04-22 13:31 | Emergency (ER) | payer MEDICARE, SELFPAY ==
--- OUTSIDE RECORDS SUMMARY | 2025-01-31 07:05 | XMS_ITS | Continuity of Care Document ---
Author Organization [facility] Address [address] [place] [address] Phone Care Team Providers Care Assembler Unit Name Role Phone Melchor Ewing MD Unavailable [...] oral route every other day - Active Procedures Procedure Date GENERAL HEALTH PANEL HEMOGLOBIN A1C HGA1C, GLYCO LIPID PANEL PSA, TOTAL ROUTINE VENIPUNCTURE PREVENTATIVE-EST: 40-64 OFFICE [id number] OFFICE [id number]-IVT-VMENDOHW OFFICE [id number]-PFZ-USND-MED Advance Directives Directive Yes / No Effective Date File Name Life Support Not Answered N/A N/A Intubation Not Answered N/A N/A Antibiotics Not Answered N/A N/A IV Fluid Support Not Answered N/A N/A Tube Feed Not Answered N/A N/A Other Directive N/A N/A WARNING:The information contained in this section is historical and is provided for information only and does not constitute a legal document or any assurance that the information is still accurate. Please verify the information with the cota of the legal document before using it for clinical purposes. Encounters Encounter Description Practice Location Reason(s) For Visit Diagnoses Date Provider Providers Copied on Encounter [facility], [address], [place], [place], [address] , tel: [phone] [facility] No Information [address], [address], [place], [place], [address], [place]. tel:[phone] [facility], [address], [place], [place], [address] , [place] tel: [phone] [facility] No Information 5 Kaylin Roche. [address], [place], [place], [address], [place]. tel:[phone] [facility], [address], [place], [place], [address] , [place] tel: [phone] [facility] Chronic neck painOther chronic pain [address], [address], [place], [place], [address], [place]. tel:[phone] PREVENTATIVE -EST: 40-64 [facility], [address], [place], [place], [address] , [place] tel: [phone] [facility] preventive exam (chief complaint)Ch ronic Conditions (chief complaint) Mixed hyperlipidemiaAcqu ired hypothyroidismCAD, multiple vesselPreventative health careChronic neck pain 4 Kaylin Roche. [address], [place], [address], [place]. tel:[phone] Referring Provider: Melchor Marquez, [address]ia [address], [place], [address] . tel:[phone] OFFICE [id number]-YWJ-WJ PANDED [facility], [address], [place], [place], [address] , [place] tel:[phone] Reinaldo Kidd acute problem (chief complaint)ac noah problem (chief complaint) Viral URI with cough 4 Cynthia Grajeda. [address], [address], [place], [place], [address]. tel:[phone] Referring Provider: Melchor Marquez, [address]ia [address], [place], [address] . tel:[phone] OFFICE VIYKC-DYH-YZ MP-MED [facility], [address], [place], [place], [address] , [place] tel:[phone] Reinaldo Kidd getting established (chief complaint) Acquired hypothyroidismCAD, multiple vesselEssential tremorChronic coughPedal edemaMixed hyperlipidemia [address], [place], [place], [address], [place]. tel:[phone] Referring Provider: Melchor Marquez, Celia [address], [place], [address] . tel:[phone] Family History Family Member Type Diagnosis Age At Onset No Information Payers Payer name Insurance type Covered green party ID Authoriza vidal(s) [facility] OPEN ACCESS I II III CI [id number] SOI Social History Type Description Quantity Date Captured Comments Alcohol Use Details Unknown Caffeine Use Details Unknown Tobacco Use Status No Information Smoking Status No Information Sex Male Sexual Orientation Straight or heterosexual Gender Identity Male Chief Complaint And Reason For Visit No Information Reason For Referral Reason For Referral No Information Plan Of Treatment Date Type Action Status Referral Referred To: Physical Therapy Ordered: Referrals: Physical Therapy. Evaluation/diagnostic/treatment - Level 3 ordered Referral Referred To: Physical Therapy [address] [place], [phone] Ordered: Referrals: Physical Therapy. Location: [facility] [place]. 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 As a number of complaints including call [...] five weeks on the recommendations of his cq developer basalt no real improvement. No family history [...] No Information Instructions Date Instruction Additional Infor katarzyna try to maintain a he althy weight.Exercise [...] to Viral URI with cough refilled atorvastati alhaji, reviewed lipid panel March 12 LDL is [...]
--- OUTSIDE RECORDS SUMMARY | 2025-01-31 07:05 | XMS_ITS | Continuity of Care Document ---
Author Organization [facility] Address [address] [place] [address] Phone Care Team Providers Care Client Delivery Specialist Name Role Phone Melchor Ewing MD Unavailable [...] PSA, TOTAL ROUTINE VENIPUNCTURE PREVENTATIVE-EST: 40-64 OFFICE [id number]-[id number] OFFICE [id number]-YHEWKYNV OFFICE BEHIV-ASB-PNJF-MED Advance Directives Directive Yes / No Effective [...] Diagnoses Date Provider Providers Copied on Encounter [facility], [address], [place], [place], [address] , tel: [phone] [facility] No Information [address] Kay[address], [address], [place], [place], [address], [place]. tel:[phone] [facility], [address], [place], [place], [address] , [place] tel: [phone] [facility] No Information 5 Kaylin Roche. [address], [place], [place], [address], [place]. tel:[phone] [facility], [address], [place], [place], [address] , [place] tel: [phone] [facility] Chronic neck painOther chronic pain [address], [address], [place], [place], [address], [place]. tel:[phone] PREVENTATIVE -EST: 40-64 [facility], [address], [place], [place], [address] , [place] tel: [phone] [facility] preventive exam (chief complaint)Ch ronic Conditions (chief complaint) Mixed hyperlipidemiaAcqu ired hypothyroidismCAD, multiple vesselPreventative health careChronic neck pain 4 Kaylin Roche. [address], [place], [address], [place]. tel:[phone] Referring Provider: Melchor Marquez, Celia [address], [place], [address] . tel:[phone] OFFICE LSKUT-INT-DG PANDED [facility], [address], [place], [place], [address] , [place] tel:[phone] Reinaldo Kidd acute problem (chief complaint)ac noah problem (chief complaint) Viral URI with cough 4 Cynthia Grajeda. [address], [address], [place], [place], [address]. tel:[phone] Referring Provider: Melchor Marquez, Celia [address], [place], [address] . tel:[phone] OFFICE YVZGD-UKE-RE MP-MED [facility], [address], [place], [place], [address] , [place] tel:[phone] Reinaldo Kidd getting established (chief complaint) Acquired hypothyroidismCAD, multiple vesselEssential tremorChronic coughPedal edemaMixed hyperlipidemia [address], [place], [place], [address], [place]. tel:[phone] Referring Provider: Melchor Marquez, Celia [address], [place], [address] . tel:[phone] Family History Family Member Type Diagnosis Age At Onset No Information Payers Payer name Insurance type Covered libertarian ID Authoriza vidal(s) CLEAR OPEN ACCESS I II III CI [id number] SOI Social History Type Description Quantity Date [...] [address] [place], [phone] Ordered: Referrals: Physical Therapy. Location: [facility] [place]. 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 As a number of complaints including call [...] five weeks on the recommendations of his freelance copywriter basalt no real improvement. No family history [...]
--- NOTE | ~2025-04-22 | XR_ITS ---
EXAM/ PROCEDURE: XR forearm RT 2V, XR hand RT min 3V - 04/22/2025 15:30 CDT HISTORY: 64 years old Male with arm swelling/bruising, pinned in door COMPARISON: None available TECHNIQUE: Three view(s) FINDINGS/ IMPRESSION: There are no fractures or dislocations.Joint spaces are within normal limits. Reviewed, dictated and finalized at location N.
[2025-04-22 13:36] VITALS: BP 133/75; PULSE 78; RESP 16; TEMP 36.9; O2SAT 99
--- OUTSIDE RECORDS SUMMARY | 2025-04-22 13:42 | XMS_ITS | Encounter Summary ---
Author Organization [facility] Address [facility] [place] [address] Care Team Providers Care Growth Hacker Name Role Phone Sania Sullivan Primary Care Provider [phone] Hugh Hamm MD Primary Care Provider [phone] Encounter Details Date Type Department Care Team (Late st Contact Info) Description 01/30/[address] [facility] [place] [address] Abelardo Rodriguez MD [address] [facility] [address] [place], [place] [address] Social History Tobacco Use Types Packs/Day Years [...] AM CDT documented as of this encounter Functional Status * Calculated C-SSRS Risk Score (Lifetime/Recent) Answer Date of Assessment Author Status No Risk Indicated 01/31/2023 11:01 AM CDT Evangelina Chacon RN Active * Arabi Suicide Severity Rating Scale (Screener/Recent Self-Report) Question Answer Date of Assessment Author Status 1. Wish to be (Past 1 Month) No 01/31/2023 11:01 AM JET Felipa Chacon RN Active 2. Non-Specific Active Suicidal Thoughts (Past 1 Month) No 01/31/2023 11:01 AM JET Felipa Chacon RN Active 6. Suicidal Behavior (Lifetime) No 01/31/2023 11:01 AM JET Felipa Chacon RN Active documented as of this encounter Plan of Treatment Not on file documented as of this encounter Results * PTT, PARTIAL THROMBOPLASTIN TIME (01/27/2023 1:55 PM CDT) PTT 35.3 25.1 - 36.5 SEC 01/27/2023 2:32 PM CDT [facility] 01/27/2023 1:55 PM CDT Abelardo Rodriguez MD LABORATORY Final Res ult [facility] [address] [place] [address], [place] [phone] * (ABNORMAL) PROTIME/INR, VENOUS (01/27/2023 1:55 PM CDT) PROTIME 13.4(H) 10.2 - 12.9 SEC 01/27/2023 2:32 PM CDT [facility] INR 1.1 01/27/2023 2:32 PM CDT [facility] Comment: Recommended INR Therapeutic Goals: 2.0-3.0 Routine Therapy 2.5-3.5 Mechanical Prosthetic Valves (High Risk) 01/27/2023 1:55 PM CDT us Abelardo Rodriguez MD LABORATORY Final Res ult [facility] [address] [place] [address], * (ABNORMAL) BASIC METABOLIC PANEL (01/27/2023 1:55 PM CDT) [facility] GLUCOSE 103(H) 70 - 99 MG/DL 01/27/2023 2:28 PM CDT [facility] BUN 21(H) 7 - 18 MG/DL 01/27/2023 2:28 PM CDT [facility] CREATININE S/P/B 1.44(H) 0.7 - 1.3 MG/DL 01/27/2023 2:28 PM CDT [facility] SODIUM S/P/B 135(L) 136 - 145 MMOL/L 01/27/2023 2:28 PM CDT [facility] POTASSIUM S/P/B 3.9 3.5 - 5.1 MMOL/L 01/27/2023 2:28 PM CDT [facility] CHLORIDE S/P/B 106 100 - 108 MMOL/L 01/27/2023 2:28 PM CDT [facility] CO2 30.3 21 - 32 MMOL/L 01/27/2023 2:28 PM CDT [facility] CALCIUM S/P/B 8.6 8.5 - 10.1 MG/DL 01/27/2023 2:28 PM CDT [facility] ANION GAP NOT CALCULATED 5 - 15 MMOL/L 01/27/2023 2:28 PM CDT [facility] BUN CREATININE RATIO 14.6 6 - 26 01/27/2023 2:28 PM CDT [facility] GFR ESTIMATE 55(L) >90 ML/MIN/1. 73 M2 01/27/2023 2:28 PM CDT [facility] Comment: NOTE: eGFR is not calculated for patients <18 years of age. This is an estimated GFR calculation using the new CKD EPI creatinine equation without race and so does not require a correction factor for race. This estimated GFR should not be used for calculating drug doses. 01/27/2023 1:55 PM CDT Abelardo Rodriguez MD LABORATORY Final Res ult [facility] [address] [place] [address], * (ABNORMAL) CBC W/DIFF AUTOMATED (01/27/2023 1:55 PM CDT) WBC 6.5 4.5 - 11.0 x10'3/uL 01/27/2023 2:09 PM CDT [facility] RBC 4.06(L) 4.70 - 6.10 x10'6/uL 01/27/2023 2:09 PM CDT [facility] HGB 12.1(L) 14.0 - 18.0 G/DL 01/27/2023 2:09 PM CDT [facility] HCT 38.1(L) 43.0 - 54.0 % 01/27/2023 2:09 PM CDT [facility] MCV 93.8 80.0 - 94.0 FL 01/27/2023 2:09 PM CDT [facility] MCH 29.8 27.0 - 31.0 PG 01/27/2023 2:09 PM CDT [facility] MCHC 31.8(L) 32.0 - 36.0 G/DL 01/27/2023 2:09 PM CDT [facility] RDW 13.8 11.5 - 14.5 % 01/27/2023 2:09 PM CDT [facility] PLT 207 130 - 400 x10'3/uL 01/27/2023 2:09 PM CDT [facility] MPV 10.2 9.3 - 12.2 FL 01/27/2023 2:09 PM CDT [facility] DIFFERENTIAL TYPE AUTOMATED DIFFERENTIAL 01/27/2023 2:09 PM CDT [facility] NEUTROPHILS % 62.6 % 01/27/2023 2:09 PM CDT [facility] LYMPHOCYTES % 18.0 % 01/27/2023 2:09 PM CDT [facility] MONOCYTES % 14.9 % 01/27/2023 2:09 PM CDT [facility] EOSINOPHILS 3.4 % 01/27/2023 2:09 PM CDT [facility] BASOPHILS 0.9 % 01/27/2023 2:09 PM CDT [facility] IMMATURE GRANS % 0.2 % 01/28/20 2:09 PM CDT [facility] ABS. NEUTROPHILS TOTAL 4.04 1.80 - 7.70 x10'3/uL 01/27/2023 2:09 PM CDT [facility] ABS. LYMPHOCYTES 1.16 1.00 - 4.80 x10'3/uL 01/27/2023 2:09 PM CDT [facility] ABS. MONOCYTES 0.96(H) 0.30 - 0.82 x10'3/uL 01/27/2023 2:09 PM CDT [facility] ABS. EOSINOPHILS 0.22 0.04 - 0.54 x10'3/uL 01/27/2023 2:09 PM CDT [facility] ABS. BASOPHILS 0.06 0.01 - 0.08 x10'3/uL 01/27/2023 2:09 PM CDT [facility] ABS. IMMATURE GRANULOCYTES 0.01 0.00 - 0.49 x10'3/uL 01/27/2023 2:09 PM CDT [facility] 01/27/2023 1:55 PM CDT Abelardo Rodriguez MD LABORATORY Final Res ult [facility] [address] [place] [address], [place] [phone] * CULTURE URINE (01/27/2023 1:47 PM CDT) SPEC DESCRIPTION URINE CLEAN CATCH 01/27/2023 1:47 PM CDT [facility] SPECIAL REQUESTS NO SPECIAL REQUEST 01/27/2023 1:47 PM CDT [facility] CULTURE RESULT NO GROWTH 2 DAYS 01/29/2023 10:23 AM CDT [facility] URINE SPECIMEN OBTAINED BY CLEAN CATCH PROCEDURE / Unknown 01/27/2023 1:47 PM CDT 01/27/2023 1:59 PM CDT Abelardo Rodriguez MD MICROBIOLOGY - GENERAL OR DERABLES Final Result [facility] [address] [place] [address], [place] [phone] * URINALYSIS [place] REFLEX TO CULTURE (01/27/2023 1:47 PM CDT) SPECIMEN TYPE URINE CLEAN CATCH 01/27/2023 1:47 PM CDT [facility] COLOR (U) COLORLESS 01/27/2023 2:10 PM CDT [facility] TRANSPARENCY CLEAR 01/27/2023 2:10 PM CDT [facility] SPECIFIC GRAVITY (U) 1.030 1.001 - 1.030 01/27/2023 2:10 PM CDT [facility] U PH 6.5 5.0 - 9.0 01/27/2023 2:10 PM CDT [facility] LEUKOCYTES (U) NEGATIVE NEGATIVE 01/27/2023 2:10 PM CDT [facility] NITRITES NEGATIVE NEGATIVE 01/27/2023 2:10 PM CDT [facility] PROTEIN (U) NEGATIVE <30 MG/DL 01/27/2023 2:10 PM CDT [facility] URINE GLUCOSE NORMAL NORMAL MG/DL 01/27/2023 2:10 PM CDT [facility] KETONES MG/DL (U) NEGATIVE NEGATIVE MG/DL 01/27/2023 2:10 PM CDT [facility] UROBILINOGEN NORMAL NORMAL MG/DL 01/27/2023 2:10 PM CDT [facility] BILIRUBIN (U) NEGATIVE NEGATIVE MG/DL 01/27/2023 2:10 PM CDT [facility] BLOOD (U) NEGATIVE NEGATIVE 01/27/2023 2:10 PM CDT [facility] CULTURE & SENSITIVITY INDICATED? CULTURE IS NOT INDICATED 01/27/2023 2:10 PM CDT [facility] WBC/HPF <1 <6 /HPF 01/27/2023 2:10 PM CDT [facility] URINE SPECIMEN OBTAINED BY CLEAN CATCH PROCEDURE / Unknown 01/27/2023 1:47 PM CDT Abelardo Rodriguez MD URINE ORDERABLES Final Re sult [facility] [address] [place] [address], documented in this encounter Visit Diagnoses Diagnosis Hypertrophy of prostate with urinary obstruction- Primary Hypertrophy of prostate with urinary obstruction and other lower urinary tract symptoms (LUTS) documented in this encounter Care Teams Growth Hacker Relationship Specialty Start Date End Date Sania Sullivan PA PCP - General PHYSICIAN SURFBOARD MAKER 01/27/23 11/28/24 Hugh Hamm MD [address] [place] [address] PCP - General FAMILY PRACTICE 11/29/24 documented as of this encounter
--- OUTSIDE RECORDS SUMMARY | 2025-04-22 13:42 | XMS_ITS | Encounter Summary ---
Author Organization [facility] Address [facility] [place] [address] Care Team Providers Care Aircraft Technician Name Role Phone Sania Sullivan Primary Care Provider [phone] Hugh Hamm MD Primary Care Provider [phone] Encounter Details Date Type Department Care Team (Late st Contact Info) Description 05/07/[address] [facility] Conversion [address] [place], [place] [address] , Generic Conversion, Social History Tobacco Use [...] Rule Out 06/20/2021 06/20/2021 09/09/2021 11:08 AM MESSENGER COPY COVID-19 Rule Out 06/21/2021 06/20/2021 06/21/2021 11:58 AM CDT documented as of this encounter Care Teams Aircraft Technician Relationship Specialty Start Date End Date Sania Sullivan PA PCP - General PHYSICIAN EQUIPMENT INSTALLATION PROFESSIONAL 01/27/23 11/28/24 Hugh Hamm MD [address] [place] [address] PCP - General FAMILY PRACTICE 11/29/24 documented as of this encounter
--- OUTSIDE RECORDS SUMMARY | 2025-04-22 13:42 | XMS_ITS | Clinical Summary ---
Author Organization [facility] Address [facility] [place] [address] Care Team Providers Care Loader Magazine Grinder Name Role Phone Hugh Hamm MD Primary Care Provider [phone] Allergies No known active allergies Medications atorvastatin [...] total) by mouth every other day. Active amoxicillin (AMOXIL) 500 MG capsule TK FOUR CS PO 1 HOUR B DAPP 07/22/2024 Active Active Problems Problem Noted Date Diagnosed Date Bilateral lower extremity edema 01/16/2025 Carotid artery stenosis 01/16/2025 FH: carotid endarterectomy 01/16/2025 H/O Hodgkin's lymphoma 01/16/2025 History of radiation therapy 01/16/2025 Hypertension 01/16/2025 S/P aortic valve replacement with bioprosthetic valve 01/16/2025 Syncope 01/16/2025 Adenomatous polyp of colon 11/29/2024 Altered bowel function 11/29/2024 Hematochezia 11/29/2024 Internal hemorrhoids 11/29/2024 Rectal fistula 11/29/2024 Acute urinary tract infection 03/21/2023 Tremor 03/13/2023 UPJ stricture, acquired 01/31/2023 Hydronephrosis 01/24/2023 Distension of abdominal wall veins 01/10/2023 Dysthymia 12/30/2022 Disorder of endocrine system 12/30/2022 Headache 09/19/2022 Tinnitus 09/19/2022 Coronary atherosclerosis 09/13/2022 Nocturia 09/13/2022 Hypothyroidism 11/05/2021 Hyperlipidemia 03/27/2018 Immunizations Immunization Administration Dates Next Due Fluzone High Dose (IIV, trivalent, 0.5mL) 2012 Hepatitis A (Havrix [address]) 02/28/2011,2009 Influenza Adult (Generic) 06/16/2014,05/21/2013 PFIZER COVID-19 (ORIGINAL FO RMULATION, PURPLE CAP) mRNA, LNP-S, PF, 30 MCG/0.3 ML DOSE 01/23/2021,01/02/2021 Tdap (Generic) 10/17/2022 Typhoid Vi Polysaccharide Vacc 25 Mcg/0.5Ml Im S oln 07/12/2010 Family History Medical History Relation Comments Diabetes [...] Sign Reading Time Taken Comments Blood Pressure 160/80 01/16/2025 3:17 PM CDT Pulse 69 01/16/2025 3:17 PM CDT Temperature 36.3 C (97.4 F) 02/14/2023 7:00 AM CDT Respiratory Rate 16 02/14/2023 12:30 PM CDT Oxygen Saturation 99% 02/14/2023 12:30 PM CDT Inhaled Oxygen Concentration - - Weight 76.5 kg (168 lb 9.6 oz) 01/16/2025 3:17 P M CDT Height 175.3 cm (5' 9) 01/16/2025 3:17 PM CDT Body Mass Index 24.9 01/16/2025 3:17 PM CDT Plan of Treatment Health Maintenance Due Date Last Done Comments ASCVD Statin 1959 Colorectal Cancer Screening Colonoscopy (10 Years) 1959 Hepatitis C 1977 Pneumococcal Vaccine: 50+ Years (1 of 2 - PCV) 1978 ASCVD LDL 09/10/2008 09/10/2007 Zoster Vaccines (1 of 2) 2009 RSV Immunization or 60+ Years (1 - Risk 60-74 years 1-dose series) 2019 COVID-19 Vaccine (3 - 2023-2 5 season) 2024 01/23/2021, 01/02/2021 DTaP, Tdap and Td Vaccines ( 2 - Td or Tdap) 10/17/2032 10/17/2022 Meningococcal B Vaccine Aged Out No l onger eligible based on patient's age to complete this topic Meningococcal Vaccine Aged Out No rita angelito eligible based on patient's age to complete this topic RSV Immunizations Under 20 Months Aged Out No longer eligible b ased on patient's age to complete this topic Medical Devices Implanted Type Area Circular Distributor Device Identifier Shelf Expiration Date Model / Serial / Lot Valve Implant Valve Implant Aorta Procedures Procedure Name Priority Date/Time Associated Diagnosis Comments LIPID PANEL Routine 09/10/2007 12:00 AM SCRUB WHEEL OPERATOR from Last 3 Months or Most Recently Relevant to Health Maintenance Results * LIPID PANEL (09/10/2007 12:00 AM SCRUB WHEEL OPERATOR) TRIGLYCERIDES 93 0 - 150 mg/dl MEDINFORMATIX TO EPIC CONVERSION CHOLESTEROL 181 0 - 200 mg/dl MEDINFORMATIX TO EPIC CONVERSION HDL 51 40 - 59 mg/dl MEDIN[employer] TO EPIC CONVERSION LDL CONVERSION 111 0 - 100 mg/dl MEDINFORMATIX TO EPIC CONVERSION 09/10/2007 09/10/2007 Narrative MEDINFORMATIX TO EPIC CONVERSION - 04/04/2008 1:14 PM CDT Reviewed by ROSANA Apr 07 2008 8:57:00:000AM us Generic Conversion [facility] Final R esult MEDINFORMATIX TO EPIC CONVERSION from Last 3 Months or Most Recently Relevant to Health Maintenance Insurance [place] [facility] Care Teams Loader Magazine Grinder Relationship Specialty Start Date End Date Hugh Hamm MD [address] [place] [address] PCP - General FAMILY PRACTICE 11/29/24
--- OUTSIDE RECORDS SUMMARY | 2025-04-22 13:42 | XMS_ITS | Encounter Summary ---
Author Organization [facility] Address [facility] [place] [address] Care Team Providers Care Soap Worker Name Role Phone Sania Sullivan Primary Care Provider [phone] Hugh Hamm MD Primary Care Provider Encounter Details Date Type Department Care Team (Late st Contact Info) Description 10/24/[address] [facility] Conversion [address] [place], [place] [address] , Generic Conversion, Social History Tobacco Use [...] Rule Out 06/20/2021 06/20/2021 09/09/2021 11:08 AM MACHINE SETTER COVID-19 Rule Out 06/21/2021 06/20/2021 06/21/2021 11:58 AM CDT documented as of this encounter Care Teams Soap Worker Relationship Specialty Start Date End Date Sania Sullivan PA PCP - General PHYSICIAN RECOVERY OPERATOR HELPER 01/27/23 11/28/24 Hugh Hamm MD [address] [place] [address] PCP - General FAMILY PRACTICE 11/29/24 documented as of this encounter
--- OUTSIDE RECORDS SUMMARY | 2025-04-22 13:43 | XMS_ITS | Clinical Summary ---
Author Organization [facility] Address [address] [place] [address] Care Team Providers Care [place] Tribunal Member Name Role Phone Enid Barnes DO Unavailable [phone] Bib Hanna MD Unavailable [phone] Hugh Hamm MD Primary Care Provider [phone] Allergies No known active allergies Medications atorvastatin (LIPITOR) 40 mg tabletIndicatio ns:hyperlipidem ia Take 1 tablet (40 mg total) by mouth daily with dinner Active levothyroxine (SYNTHROID) 75 mcg tabletIndicatio ns:hypothyroidi sm Take 1 tablet (75 mcg total) by mouth bioinformaticist before breakfast Active cyanocobalamin (Vitamin B-12) 1,000 [...] daily Resume in 3 days 3 Active linaCLOtide (LINZESS) 145 mcg capsule 1 capsule (145 mcg total) Active Active Problems Problem Noted Date Diagnosed Date LUQ pain 04/15/2025 Atrophic kidney 05/17/2023 Atrophic kidney, acquired 04/14/2023 Encounters Date Type Department Care Team Description 04/15/2025 8:30 AM CDT Office Visit [facility] Gastroenterology at [address] [place] [address] Rahul Guerrero MD LUQ abdominal pain (Primary Dx); Abdominal bloating; Other constipation 04/15/2025 Telephone [facility] Gastroenterology at [address] [place] [phone] Laurence Hernandez LPN from Last 3 Months Surgical History Surgery Date Site/Laterality Comments CATH SVC IVC BILATERAL 04/02/2015 Bilateral CATH SVC IVC BILATERAL 07/21/2015 Bilateral CATH SVC IVC BILATERAL 04/08/2015 Bilateral Medical History Medical History Date Comments Hyperlipidemia Hodgkin lymphoma 1974 H/O kidney removal Social History Tobacco Use Types Packs/Day Years Used Date Smoking Tobacco: Never Passive Smoke Exposure: Never Smokeless Tobacco: Never Tobacco Cessation:Counseling Given: Not Answered AUDIT-C Answer Date Recorded Q1: How often do you have a drink containing alc ohol? Never 04/15/2025 Average Number of Drinks Not on file 025 Frequency of Binge Drinking Not on file 03/22 Personal Safety Answer Date Recorded Have you ever been in or are you currently in a harmful physical or emotional relationship or is someone making you feel afraid or unsafe? Denies 05/04/2024 Sex and Gender Information Value Date Recorded Sex Assigned at Not on file Legal Sex Male 5:57 AM MUSEUM EXHIBIT DESIGNER Gender Identity Not on file Sexual Orientation Not on file Obstetrics History Last Filed Vital Signs Vital Sign Reading Time Taken Comments Blood Pressure 155/82 04/15/2025 8:27 AM CDT Pulse 68 04/15/2025 8:27 AM CDT Temperature 36.7 C (98 F) 05/04/2024 11:28 AM CDT Respiratory Rate 16 05/04/2024 11:28 AM CDT Oxygen Saturation 97% 04/15/2025 8:27 AM CDT Inhaled Oxygen Concentration - - Weight 75.5 kg (166 lb 8 oz) 04/15/2025 8:27 AM CDT Height 175.3 cm (5' 9) 04/15/2025 8:27 AM CDT Body Mass Index 24.59 04/15/2025 8:27 AM CDT Plan of Treatment Upcoming Encounters Date Type Department Care Team (Latest Contact Info) Description 05/26/2025 8:00 AM CDT Hospital Encounter [facility] 1 [place] [address] Rahul Guerrero MD [address] [facility] [address] [place] [address] 05/26/2025 8:00 AM CDT - 05/26/2025 8:30 AM CDT Surgery [facility] 1 [place] [address] Rahul Guerrero MD [address] [facility] [address] [place] [address] ESOPHAGOGASTRODUODENOSCOPY Scheduled Procedures Name Priority Associated Diagnoses Date/Ti me ESOPHAGOGASTRODUODENOSCOPY LUQ pain 05/26/2025 8:00 AM CDT Health Maintenance Due Date Last Done Comments Colon Cancer Screening-Colonoscopy 1959 Depression Screening 1959 Hepatitis C Screening 1959 Prostate Cancer Screening-PSA 1959 Pneumococcal vaccine 65+ (1 of 2 - PCV) 1978 Zoster Vaccine (1 of 2) 1978 Fall Risk Assessment 05/17/2024 05/17/2023 Well Visit 65+ 2024 Covid-19 Vaccine (3 - season) 04/21/202512/2020, 01/02/2021 Influenza Vaccine (#1) 2025 06/16/2014, 2012 DTaP/Tdap/Td Vaccine (2 - Td or Tdap) 10/17/2032 Hepatitis B Screening Completed 02/28/2011 , 08/16/2010, 07/12/2010 Insurance [employer] MEDICARE Advance Directives For more information, please contact: [phone] Documents on File Type Date Recorded Patient Cert Occupational Therapy Asst Expl anation Power of Communications Equipment Installer 05/17/2023 11:19 AM * Full Code (Latest Code Status on File) Date Activated Date Inactivated Comments 05/17/2023 6:46 PM 05/18/2023 10:05 PM Care Teams [place] Tribunal Member Relationship Specialty Start Date End Date Hugh Hamm MD [address] [place], [place] [id number] PCP - General Family Practice 04/15/25 Enid Barnes DO [address] [place] [address] Referring Physician Internal Medicine 05/12/23 Bib Hanna MD [address] [place] [address] Consulting Physician Urology 05/18/23
--- NOTE | 2025-04-22 15:23 | ED.UPPEXIN ---
HPI - Extremity Injury (Upper) General Chief Complaint: Extremity Injury, Upper <GIOVANNY Garcia Last Filed: 04/22/25 15:29> Stated Complaint: R forearm injury <GIOVANNY Garcia Last Filed: 04/22/25 15:29> Time Seen by Provider: 04/22/25 15:24 <GIOVANNY Garcia Last Filed: 04/22/25 15:29> Focused HPI: Patient is a 64-year-old male who presents the ED with report of right forearm injury. Patient reports he cut his right forearm pinned between a sliding door and the support of his bulbar in. He sustained an abrasion to his right dorsal forearm, with swelling, bruising extending into his right hand. Denies significant pain. Denies numbness. Tetanus up-to-date. GENERAL: Well-appearing, well-nourished, and in no acute distress. HEAD: Normocephalic, atraumatic. CHEST: Clear to auscultation. ?No respiratory distress. HEART: Regular rate and rhythm.? MSK: Abrasion to R distal dorsal forearm, with localized swelling throughout distal forearm. Mild TTP. Some swelling and bruising extending into R dorsal hand w/o significant tenderness in R hand. No snuffbox tenderness. Sensation intact. Radial pulses intact. NEURO: ?Alert and oriented x3. Patient screened in triage and initial orders placed.? ?Additional care and disposition to be based upon?diagnostic testing and treatment. <GIOVANNY Garcia Last Filed: 04/22/25 15:29> Source: patient <GIOVANNY Garcia Last Filed: 04/22/25 15:29> Mode of arrival: ambulatory <GIOVANNY Garcia Last Filed: 04/22/25 15:29> Limitations: no limitations <GIOVANNY Garcia Last Filed: 04/22/25 15:29> History of Present Illness HPI narrative: Agree with the above triage note. Patient states injury occurred 2 days ago. Patient states his tetanus was updated 4 years ago. <GIOVANNY Wilkinson Last Filed: 04/22/25 17:40> Related Data Home Medications: Home Medications ?Medication ?Instructions ?Recorded ?Confirmed ?Last Taken ?Type aspirin 81 mg tablet 81 mg PO DAILY 03/26/25 04/17/25 Unknown History <Kassie Adair PA-C - Last Filed: 04/22/25 15:29> Allergies/Adverse Reactions: Allergies Allergy/AdvReac Type Severity Reaction Status Date / Time No Known Allergies Allergy Verified 04/22/25 13:38 <Kassie Adair PA-C - Last Filed: 04/22/25 15:29> Review of Systems Review of Systems: All systems reviewed & are unremarkable except as noted in HPI and below <Rani Hernandez PA-C - Last Filed: 04/22/25 17:40> PMFSH Past Medical History Medical History: Medical History AK (actinic keratosis) <Kassie Adair PA-C - Last Filed: 04/22/25 15:29> Family History Family History: Family History Father Diabetes mellitus Hypercholesteremia Heart disease Grandparent Carcinoma of colon <Kassie Adair PA-C - Last Filed: 04/22/25 15:29> Social History Social History: Social History Smoking status: Never smoker Substance use type: does not use Living arrangements: alone Spiritual care concerns: No <Kassie Adair PA-C - Last Filed: 04/22/25 15:29> Exam Narrative: GENERAL: Well-appearing, well-nourished, and in no acute distress. HEAD: Normocephalic, atraumatic. EYES: EOMI. ENT: Nares clear, no rhinorrhea or epistaxis. Mucous membranes moist. NECK: Supple. CHEST: Clear to auscultation. No respiratory distress. HEART: Regular rate and rhythm. No murmur heard. Normal peripheral pulses. EXTREMITIES:Abrasion to R distal dorsal forearm, with localized swelling throughout distal forearm. No surrounding erythema, warmth or drainage from abrasion. Mild TTP. Some swelling and bruising extending into R dorsal hand w/o significant tenderness in R hand. No snuffbox tenderness. Sensation intact. Radial pulses intact. SKIN: Warm, dry, no rash. NEURO: No focal deficits. Alert and oriented x3 <GIOVANNY Wilkinson Last Filed: 04/22/25 17:40> Course Vital Signs Vital signs: Vital Signs Temperature 98.4 F 04/22/25 13:36 Pulse Rate 78 04/22/25 13:36 Respiratory Rate 16 04/22/25 13:36 Blood Pressure 133/75 04/22/25 13:36 Pulse Oximetry 99 04/22/25 13:36 Oxygen Delivery Room Air 04/22/25 13:36 Temperature 98.4 F 04/22/25 13:36 Pulse Rate 78 04/22/25 13:36 Respiratory Rate 16 04/22/25 13:36 Blood Pressure 133/75 04/22/25 13:36 Pulse Oximetry 99 04/22/25 13:36 Oxygen Delivery Room Air 04/22/25 13:36 <GIOVANNY Garcia Last Filed: 04/22/25 15:29> Vital Signs Temperature 98.4 F 04/22/25 13:36 Pulse Rate 78 04/22/25 13:36 Respiratory Rate 16 04/22/25 13:36 Blood Pressure 133/75 04/22/25 13:36 Pulse Oximetry 99 04/22/25 13:36 Oxygen Delivery Room Air 04/22/25 13:36 Temperature 98.4 F 04/22/25 13:36 Pulse Rate 78 04/22/25 13:36 Respiratory Rate 16 04/22/25 13:36 Blood Pressure 133/75 04/22/25 13:36 Pulse Oximetry 99 04/22/25 13:36 Oxygen Delivery Room Air 04/22/25 13:36 <GIOVANNY Wilkinson Last Filed: 04/22/25 17:40> MDM - Extremity Injury (Upper) MDM Narrative Medical decision making narrative: MSE by NICOLE in triage. <GIOVANNY Garcia Last Filed: 04/22/25 15:29> MSE by NICOLE in triage. 64-year-old male presents emergency department for right wrist injury that occurred 2 days ago. See HPI for further history. Triage vitals are stable. Exam is notable for the above. Compartments are soft. Patient is neurovascularly intact. No obvious deformity. No evidence of secondary bacterial infection to the abrasion. X-rays of the right hand and forearm show no acute osseous findings. Patient updated on results. Discussed supportive care, RICE, Tylenol for pain. Offered topical antibiotic ointment for the abrasion, however patient politely declined. Advised follow-up with PCP discussed strict ED return precautions. He is agreeable with the plan verbalized understanding. Discharged in stable condition. <Rani Hernandez PA-C - Last Filed: 04/22/25 17:40> Discharge Plan Discharge Clinical Impression: Abrasion Contusion of right wrist Qualifiers: Encounter type: initial encounter Qualified Code(s): S60.211A - Contusion of right wrist, initial encounter <GIOVANNY Garcia Last Filed: 04/22/25 15:29> Patient Disposition: Home <GIOVANNY Garcia Last Filed: 04/22/25 15:29> Condition: Stable <GIOVANNY Garcia Last Filed: 04/22/25 15:29> Instructions: Antibiotic Form, Contusion in Adults (ED), Abrasion (ED) <GIOVANNY Garcia Last Filed: 04/22/25 15:29> Additional Instructions: Please rest, ice, elevate and keep your risk compressed. Take Tylenol as needed for pain. Keep the wound clean and dry. Follow-up closely with her primary care provider. Return to the emergency department if you develop surrounding redness, fever, drainage, increased pain or other concerning symptoms. <GIOVANNY Garcia Last Filed: 04/22/25 15:29> Patient Language: Qatari <GIOVANNY Garcia Last Filed: 04/22/25 15:29> Prescriptions: No Action aspirin 81 mg tablet 81 mg PO DAILY linaclotide 145 mcg capsule 145 mcg PO DAILY Qty: 90 0RF polyethylene glycol 3350 [Miralax] 17 gram powder in packet 17 g PO DAILY Qty: 14 0RF docusate sodium 100 mg capsule 100 mg PO BID Qty: 28 0RF magnesium hydroxide [Milk of Magnesia] 400 mg/5 mL suspension 15 ml PO TID Qty: 3000 0RF atorvastatin 40 mg tablet 40 mg PO DAILY Qty: 90 1RF levothyroxine 75 mcg tablet 75 mcg PO DAILY Qty: 90 1RF <Kassie Adair PA-C - Last Filed: 04/22/25 15:29> Follow-up/Referrals: Hugh Hamm MD [Primary Care Provider, Family Practice] <Kassie Adair PA-C - Last Filed: 04/22/25 15:29>
--- OUTSIDE RECORDS SUMMARY | 2025-04-22 17:13 | XMS_ITS | Clinical Summary ---
Author Organization [facility] Address [address] [place] [address] Care Team Providers Care Corporate Planner Name Role Phone Enid Barnes DO Unavailable [phone] Bib Hanna MD Unavailable [phone] Hugh Hamm MD Primary Care Provider [phone] Allergies No known active allergies Medications atorvastatin (LIPITOR) 40 mg tabletIndicatio ns:hyperlipidem ia Take 1 tablet (40 mg total) by mouth daily with dinner Active levothyroxine (SYNTHROID) 75 mcg tabletIndicatio ns:hypothyroidi sm Take 1 tablet (75 mcg total) by mouth stained glass installer before breakfast Active cyanocobalamin (Vitamin B-12) 1,000 [...] Description 04/15/2025 8:30 AM CDT Office Visit [facility] Gastroenterology at [address] [place] [address] Rahul Guerrero MD LUQ abdominal pain (Primary Dx); Abdominal bloating; Other constipation 04/15/2025 Telephone [facility] Gastroenterology at [address] [place] [phone] Laurence Hernandez LPN from Last 3 Months [...] on file 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 Gender Identity Not on file Sexual Orientation [...] Description 05/26/2025 8:00 AM CDT Hospital Encounter [facility] 1 [place] [address] Rahul Guerrero MD [address] [facility] [address] [place] [address] 05/26/2025 8:00 AM CDT - 05/26/2025 8:30 AM CDT Surgery [facility] 1 [place] [address] Rahul Guerrero MD [address] [facility] [address] [place] [address] ESOPHAGOGASTRODUODENOSCOPY Scheduled Procedures Name Priority Associated Diagnoses [...] Advance Directives For more information, please contact: [phone] Documents on File Type Date Recorded Patient Recreation Therapy Teacher Expl anation Power of Manager [employer] 05/17/2023 11:19 AM * Full Code (Latest Code Status on File) Date Activated Date Inactivated Comments 05/17/2023 6:46 PM 05/18/2023 10:05 PM Care Teams Corporate Planner Relationship Specialty Start Date End Date Hugh Hamm MD [address] [place], [place] [id number] PCP - General Family Practice 04/15/25 Enid Barnes DO [address] [place] [address] Referring Physician Internal Medicine 05/12/23 Bib Hanna MD [address] [place] [address] Consulting Physician Urology 05/18/23
--- OUTSIDE RECORDS SUMMARY | 2025-04-22 17:13 | XMS_ITS | Encounter Summary ---
Author Organization [facility] Address [facility] [place] [address] Care Team Providers Care Physical Therapist Technician Name Role Phone Snaia Sullivan Primary Care Provider [phone] Hugh Hamm MD Primary Care Provider [phone] Encounter Details Date Type Department Care Team (Late st Contact Info) Description 01/30/2023 Prep for Procedure [facility] [place] [address] Abelardo Rodriguez MD [address] [facility] [address] [place], [place] [address] Social History Tobacco Use Types Packs/Day Years [...] AM CDT Evangelina Chacon RN Active * [place] Suicide Severity Rating Scale (Screener/Recent Self-Report) Question [...] - 36.5 SEC 01/27/2023 2:32 PM CDT [facility] 01/27/2023 1:55 PM CDT Abelardo Rodriguez MD LABORATORY Final Res ult [facility] [address] [place] [address], [place] [phone] * (ABNORMAL) PROTIME/INR, VENOUS (01/27/2023 1:55 PM CDT) PROTIME 13.4(H) 10.2 - 12.9 SEC 01/27/2023 2:32 PM CDT [facility] INR 1.1 01/27/2023 2:32 PM CDT [facility] Comment: Recommended INR Therapeutic Goals: 2.0-3.0 Routine Therapy 2.5-3.5 Mechanical Prosthetic Valves (High Risk) 01/27/2023 1:55 PM CDT us Abelardo Rodriguez MD LABORATORY Final Res ult [facility] [address] [place] [address], * (ABNORMAL) BASIC METABOLIC PANEL (01/27/2023 1:55 PM CDT) [facility] GLUCOSE 103(H) 70 - 99 MG/DL 01/27/2023 2:28 PM CDT [facility] BUN 21(H) 7 - 18 MG/DL 01/27/2023 2:28 PM CDT [facility] CREATININE S/P/B 1.44(H) 0.7 - 1.3 MG/DL 01/27/2023 2:28 PM CDT [facility] SODIUM S/P/B 135(L) 136 - 145 MMOL/L 01/27/2023 2:28 PM CDT [facility] POTASSIUM S/P/B 3.9 3.5 - 5.1 MMOL/L 01/27/2023 2:28 PM CDT [facility] CHLORIDE S/P/B 106 100 - 108 MMOL/L 01/27/2023 2:28 PM CDT [facility] CO2 30.3 21 - 32 MMOL/L 01/27/2023 2:28 PM CDT [facility] CALCIUM S/P/B 8.6 8.5 - 10.1 MG/DL 01/27/2023 2:28 PM CDT [facility] ANION GAP NOT CALCULATED 5 - 15 MMOL/L 01/27/2023 2:28 PM CDT [facility] BUN CREATININE RATIO 14.6 6 - 26 01/27/2023 2:28 PM CDT [facility] GFR ESTIMATE 55(L) >90 ML/MIN/1. 73 M2 01/27/2023 2:28 PM CDT [facility] Comment: NOTE: eGFR is not calculated for patients <18 years of age. This is an estimated GFR calculation using the new CKD EPI creatinine equation without race and so does not require a correction factor for race. This estimated GFR should not be used for calculating drug doses. 01/27/2023 1:55 PM CDT Abelardo Rodriguez MD LABORATORY Final Res ult [facility] [address] [place] [address], * (ABNORMAL) CBC W/DIFF AUTOMATED (01/27/2023 1:55 PM CDT) WBC 6.5 4.5 - 11.0 x10'3/uL 01/27/2023 2:09 PM CDT [facility] RBC 4.06(L) 4.70 - 6.10 x10'6/uL 01/27/2023 2:09 PM CDT [facility] HGB 12.1(L) 14.0 - 18.0 G/DL 01/27/2023 2:09 PM CDT [facility] HCT 38.1(L) 43.0 - 54.0 % 01/27/2023 2:09 PM CDT [facility] MCV 93.8 80.0 - 94.0 FL 01/27/2023 2:09 PM CDT [facility] MCH 29.8 27.0 - 31.0 PG 01/27/2023 2:09 PM CDT [facility] MCHC 31.8(L) 32.0 - 36.0 G/DL 01/27/2023 2:09 PM CDT [facility] RDW 13.8 11.5 - 14.5 % 01/27/2023 2:09 PM CDT [facility] PLT 207 130 - 400 x10'3/uL 01/27/2023 2:09 PM CDT [facility] MPV 10.2 9.3 - 12.2 FL 01/27/2023 2:09 PM CDT [facility] DIFFERENTIAL TYPE AUTOMATED DIFFERENTIAL 01/27/2023 2:09 PM CDT [facility] NEUTROPHILS % 62.6 % 01/27/2023 2:09 PM CDT [facility] LYMPHOCYTES % 18.0 % 01/27/2023 2:09 PM CDT [facility] MONOCYTES % 14.9 % 01/27/2023 2:09 PM CDT [facility] EOSINOPHILS 3.4 % 01/27/2023 2:09 PM CDT [facility] BASOPHILS 0.9 % 01/27/2023 2:09 PM CDT [facility] IMMATURE GRANS % 0.2 % 01/28/20 2:09 PM CDT [facility] ABS. NEUTROPHILS TOTAL 4.04 1.80 - 7.70 x10'3/uL 01/27/2023 2:09 PM CDT [facility] ABS. LYMPHOCYTES 1.16 1.00 - 4.80 x10'3/uL 01/27/2023 2:09 PM CDT [facility] ABS. MONOCYTES 0.96(H) 0.30 - 0.82 x10'3/uL 01/27/2023 2:09 PM CDT [facility] ABS. EOSINOPHILS 0.22 0.04 - 0.54 x10'3/uL 01/27/2023 2:09 PM CDT [facility] ABS. BASOPHILS 0.06 0.01 - 0.08 x10'3/uL 01/27/2023 2:09 PM CDT [facility] ABS. IMMATURE GRANULOCYTES 0.01 0.00 - 0.49 x10'3/uL 01/27/2023 2:09 PM CDT [facility] 01/27/2023 1:55 PM CDT Abelardo Rodriguez MD LABORATORY Final Res ult [facility] [address] [place] [address], [place] [phone] * CULTURE URINE (01/27/2023 1:47 PM CDT) SPEC DESCRIPTION URINE CLEAN CATCH 01/27/2023 1:47 PM CDT [facility] SPECIAL REQUESTS NO SPECIAL REQUEST 01/27/2023 1:47 PM CDT [facility] CULTURE RESULT NO GROWTH 2 DAYS 01/29/2023 10:23 AM CDT [facility] URINE SPECIMEN OBTAINED BY CLEAN CATCH PROCEDURE / Unknown 01/27/2023 1:47 PM CDT 01/27/2023 1:59 PM CDT Abelardo Rodriguez MD MICROBIOLOGY - GENERAL OR DERABLES Final Result [facility] [address] [place] [address], [place] [phone] * URINALYSIS WI REFLEX TO CULTURE (01/27/2023 1:47 PM CDT) SPECIMEN TYPE URINE CLEAN CATCH 01/27/2023 1:47 PM CDT [facility] COLOR (U) COLORLESS 01/27/2023 2:10 PM CDT [facility] TRANSPARENCY CLEAR 01/27/2023 2:10 PM CDT [facility] SPECIFIC GRAVITY (U) 1.030 1.001 - 1.030 01/27/2023 2:10 PM CDT [facility] U PH 6.5 5.0 - 9.0 01/27/2023 2:10 PM CDT [facility] LEUKOCYTES (U) NEGATIVE NEGATIVE 01/27/2023 2:10 PM CDT [facility] NITRITES NEGATIVE NEGATIVE 01/27/2023 2:10 PM CDT [facility] PROTEIN (U) NEGATIVE <30 MG/DL 01/27/2023 2:10 PM CDT [facility] URINE GLUCOSE NORMAL NORMAL MG/DL 01/27/2023 2:10 PM CDT [facility] KETONES MG/DL (U) NEGATIVE NEGATIVE MG/DL 01/27/2023 2:10 PM CDT [facility] UROBILINOGEN NORMAL NORMAL MG/DL 01/27/2023 2:10 PM CDT [facility] BILIRUBIN (U) NEGATIVE NEGATIVE MG/DL 01/27/2023 2:10 PM CDT [facility] BLOOD (U) NEGATIVE NEGATIVE 01/27/2023 2:10 PM CDT [facility] CULTURE & SENSITIVITY INDICATED? CULTURE IS NOT INDICATED 01/27/2023 2:10 PM CDT [facility] WBC/HPF <1 <6 /HPF 01/27/2023 2:10 PM CDT [facility] URINE SPECIMEN OBTAINED BY CLEAN CATCH PROCEDURE / Unknown 01/27/2023 1:47 PM CDT Abelardo Rodriguez MD URINE ORDERABLES Final Re sult [facility] [address] [place] [address], documented in this encounter Visit Diagnoses Diagnosis Hypertrophy of prostate with urinary obstruction- Primary Hypertrophy of prostate with urinary obstruction and other lower urinary tract symptoms (LUTS) documented in this encounter Care Teams Physical Therapist Technician Relationship Specialty Start Date End Date Sania Sullivan PA PCP - General PHYSICIAN MICROPALEONTOLOGIST 01/27/23 11/28/24 Hugh Hamm MD [address] [place] [id number] PCP - General FAMILY PRACTICE 11/29/24 documented as of this encounter
--- OUTSIDE RECORDS SUMMARY | 2025-04-22 17:13 | XMS_ITS | Clinical Summary ---
Author Organization [facility] Address [facility] [place] [address] Care Team Providers Care Career Development Facilitator Name Role Phone Hugh Hamm MD Primary Care Provider [phone] Allergies No known active allergies Medications atorvastatin [...] this topic Medical Devices Implanted Type Area Drop Hammer Pile Driver Operator Device Identifier Shelf Expiration Date Model / Serial / Lot Valve Implant Valve Implant Aorta Procedures Procedure Name Priority Date/Time Associated Diagnosis Comments LIPID PANEL Routine 09/10/2007 12:00 AM INDUSTRIAL ELECTRICIAN JOURNEYMAN from Last 3 Months or Most Recently Relevant to Health Maintenance Results * LIPID PANEL (09/10/2007 12:00 AM INDUSTRIAL ELECTRICIAN JOURNEYMAN) TRIGLYCERIDES 93 0 - 150 mg/dl MEDINFORMATIX [...] Most Recently Relevant to Health Maintenance Insurance [employer] [facility] Care Teams Career Development Facilitator Relationship Specialty Start Date End Date Hugh Hamm MD [address] [place] [address] PCP - General FAMILY PRACTICE 11/29/24
--- OUTSIDE RECORDS SUMMARY | 2025-04-22 17:13 | XMS_ITS | Encounter Summary ---
Author Organization [facility] Address [facility] [place] [address] Care Team Providers Care Gaming Pit Boss Name Role Phone Sania Sullivan Primary Care Provider [phone] Hugh Hamm MD Primary Care Provider [phone] Encounter Details Date Type Department Care Team (Late st Contact Info) Description 10/24/[address] 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
--- OUTSIDE RECORDS SUMMARY | 2025-04-22 17:13 | XMS_ITS | Encounter Summary ---
Author Organization [facility] Address [facility] [place] [address] Care Team Providers Care Patrol Inspector Name Role Phone Sania Sullivan Primary Care Provider [phone] Hugh Hamm MD Primary Care Provider [phone] Encounter Details Date Type Department Care Team (Late st Contact Info) Description 05/07/[address] 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
[2025-04-22 17:50] VITALS: BP 135/94; PULSE 62; RESP 16; O2SAT 100
== END 2025-04-22 17:51 | disposition home or self-care (01) ==
PROVIDERS: Emergency Provider Physician Assistant; PCP Family Medicine
DX: S60.211A Contusion of right wrist, initial encounter (principal); S50.811A Abrasion of right forearm, initial encounter; W23.0XXA Caught, crushed, jammed, or pinched between moving objects, initial encounter; L57.0 Actinic keratosis
CPT/HCPCS: 73090; 73130; 99283

== ENCOUNTER 2025-05-06 07:23 | Outpatient (CLI) | payer MEDICARE, SELFPAY ==
--- NOTE | ~2025-05-06 | CT_ITS ---
EXAMINATION: CTA brain DATE: 05/06/2025 08:04 INDICATION: Pulsatile tinnitus, left ear. TECHNIQUE: Computed tomographic angiography (CTA) of the head was performed without and with 100 mL Omnipaque-350 intravenous contrast. Automated exposure control and iterative reconstruction technique were employed. The dose-length product was 1196.71 mGy-cm. Maximum intensity projection 3D reconstructions were created. Volume-rendered 3D reconstructions of the intracranial arteries were created by the technologist on a separate workstation. COMPARISON: Brain MRI 09/30/2022 FINDINGS: There is no intracranial hemorrhage, acute infarction, or abnormal intracranial mass lesion. The ventricles are normal in size. The orbits are normal. There is mild mucosal thickening in the ethmoid sinuses. The mastoid air cells are normal. Right vertebral artery is dominant. There is no significant stenosis of basilar artery or the posterior cerebral arteries. There is no significant stenosis of the intracranial internal carotid arteries or anterior or middle cerebral arteries. Anterior communicating artery is normal. The posterior communicating arteries are normal. There is no aneurysm. IMPRESSION: 1. Normal brain. 2. No aneurysm or significant intracranial arterial stenosis. Reviewed, dictated and finalized at location E.
[2025-05-06 07:55] LABS: Estimated Glomerular Filt Rate 55
== END 2025-05-06 07:24 | disposition home or self-care (01) ==
PROVIDERS: PCP Family Medicine; Visit Provider Otolaryngology
DX: H93.A2 Pulsatile tinnitus, left ear (principal); I65.22 Occlusion and stenosis of left carotid artery
CPT/HCPCS: 70496; Q9967